=== PATIENT | female | born 1945 | race African-American/Black ===

== ENCOUNTER 2019-02-09 10:33 | Inpatient (IN) | payer OTHER ==
[~2019-02-09] VITALS: Ht 152.4 cm; Wt 92.5 kg
[2019-02-09 10:40] VITALS: BP 98/64
--- NOTE | 2019-02-09 10:43 | NUR ---
RT NOTE PT PLACED ON VENT PER MD ORDER. PT RECEIVED BEING BAGGED BY PARAMEDICS. PT HAS PORTEX [address] CUFFED [address]. CUFF INFLATED. VENTILATOR SETTINGS FOUND IN ENDORSEMENT SHEET FROM FACILITY AC 16 500 40% +5. NO DISTRESS NOTED. ALARMS SET PER PROTOCOL AND AUDIBLE. VENT PLUGGED IN TO RED OUTLET. AMBU BAG AT BED SIDE. ED HEARD UPON AUSCULTATION. MODERATE THICK BROWN BLOOD TINGED SECRETIONS FOUND AFTER SUCTIONING TRACHEA AND ORALLY. Addendum: 02/09/19 at 1047 by SADIQ OLMEDO RT Amended: Links added.
--- NOTE | 2019-02-09 10:46 | NUR ---
PATIENT HAS KAPOOR CATHETER PRIOR TO ADMISSION. WITH DARK YELLOW URINE OUTPUT NOTED
--- NOTE | 2019-02-09 10:46 | NUR ---
PATIENT BBRA [id number] FROM [place] WITH REPORT THAT PATIENT HAS BEEN MORE ALERTERED THAN NORMAL, REPORTS THAT PATIENT IN USUALLY ALERT AND ORIENTED X 1, ABLE TO FOLLOW WITH EYES. PATIENT TRACH/VENT. OBTUNDED. DOES NOT FOLLOW COMMANDS, DOES NOT MAKE EYE CONTACT. CONNECTED TO VENTILATOR.
--- NOTE | 2019-02-09 10:50 | NUR ---
URINE COLLECTED AND SENT TO LAB
--- NOTE | 2019-02-09 10:55 | NUR ---
DR SARAVIA AT BEDSIDE
[2019-02-09 11:03] LABS: BASOPHILS % (AUTO) 0.3 % (0.0-2.0); HEMATOCRIT 34 % (33-45); HEMOGLOBIN 10.9 g/dL (11.5-14.8); LYMPHOCYTES % (AUTO) 8.1 % (20.0-44.0); MEAN CORPUSCULAR HGB CONC 32 g/dl (31.0-36.0); MEAN CORPUSCULAR VOLUME 92 fL (82-100); MONOCYTES # (AUTO) 1.3 /CMM (0.1-1.30); NEUTROPHILS # (AUTO) 10.2 /CMM (1.8-8.9); NEUTROPHILS % (AUTO) 80.6 % (43.0-81.0); PLATELET COUNT (AUTO) 90 /CMM (150-450); WHITE BLOOD COUNT (AUTO) 12.7 K/uL (4.3-11.0)
--- NOTE | 2019-02-09 11:05 | NUR ---
RECTAL TEMP TAKEN, 97.8
[2019-02-09 11:06] LABS: APPEARANCE,URINE Cloudy (CLEAR); BILIRUBIN,URINE SMALL (NEGATIVE); BLOOD, URINE Large Ery/uL (NEGATIVE); COLOR,URINE Dark (YELLOW); KETONES,URINE Trace (NEGATIVE); LEUKOCYTE ESTERASE ,URINE Moderate (NEGATIVE); NITRITE, URINE Negative (NEGATIVE); PROTEIN,URINE >=300 mg/dl (NEGATIVE); UGLUCOSE Negative (NEGATIVE)
[2019-02-09 11:07] LABS: PH,URINE >9.0 (5.0-8.0)
[2019-02-09 11:18] LABS: BACTERIA,URINE 4+ /HPF (None Seen); RBC,URINE TOO NUMEROUS TO COUN /HPF (0-2); SQUAMOUS EPITHELIAL CELL,UR Few /HPF (None Seen); WBC,URINE TOO NUMEROUS TO COUN /HPF (0-3)
[2019-02-09 11:22] LABS: CALCIUM, SERUM 8.7 mg/dL (8.5-10.1); CARBON DIOXIDE 30 mmol/L (21-32); CHLORIDE 96 mmol/L (98-107); CREATININE 0.8 mg/dL (0.6-1.3); GLUCOSE 100 mg/dL (74-106); POTASSIUM 4.6 mmol/L (3.5-5.1); SODIUM SERUM 129 mmol/L (136-145); UREA NITROGEN, BLOOD 25 mg/dL (7-18)
[2019-02-09] MEDS ORDERED: FERR300L GT (11:25)
[2019-02-09] MEDS ORDERED: PROP10TA10 GT (11:25)
[2019-02-09] MEDS ORDERED: POTA20PA34 GT (11:25)
[2019-02-09] MEDS ORDERED: VIT500LI GT (11:25)
[2019-02-09] MEDS ORDERED: MAGN400O6 GT (11:25)
[2019-02-09] MEDS ORDERED: HEPA1DIS3 IM (11:25)
[2019-02-09] MEDS ORDERED: CHLO473M5 MM (11:25)
[2019-02-09] MEDS ORDERED: FLUD0.1T GT (11:25)
[2019-02-09] MEDS ORDERED: INSU100V3 SQ (11:25)
[2019-02-09] MEDS ORDERED: MULT-1168 GT (11:25)
[2019-02-09] MEDS ORDERED: NUT.237L30 GT (11:25)
[2019-02-09] MEDS ORDERED: IPRA3AMP23 IH ×2 (11:25)
[2019-02-09] MEDS ORDERED: AMIN30LI27 GT (11:25)
[2019-02-09] MEDS ORDERED: FOLI1TAB16 GT (11:25)
[2019-02-09] MEDS ORDERED: HYDR-4384 GT (11:25)
[2019-02-09] MEDS ORDERED: ACET-2605 GT (11:25)
[2019-02-09] MEDS ORDERED: NA P133E RC (11:25)
[2019-02-09] MEDS ORDERED: LACT10SO GT (11:25)
[2019-02-09] MEDS ORDERED: ACET650S26 GT ×2 (11:25)
[2019-02-09] MEDS ORDERED: RIFA550T GT (11:25)
[2019-02-09] MEDS ORDERED: METH1TAB GT (11:25)
[2019-02-09] MEDS ORDERED: FAMO20TA8 GT (11:25)
[2019-02-09] MEDS ORDERED: BISA10SU8 RC (11:25)
[2019-02-09] MEDS ORDERED: BRIM5DRO3 EACHEYE (11:25)
[2019-02-09 11:32] LABS: ALANINE AMINOTRANSFERASE 30 U/L (12-78); ALBUMIN 1.8 g/dL (3.4-5.0); ALKALINE PHOSPHATASE 235 U/L (46-116); ASPARTATE AMINOTRANSFERASE 39 U/L (15-37); BILIRUBIN,DIRECT 0.5 mg/dL (0.0-0.2); TOTAL PROTEIN, SERUM 6.8 g/dL (6.4-8.2)
[2019-02-09] MEDS ORDERED: VANCOMYCIN 1 GM in IV D5W 250 ML IV ONE (12:00)
[2019-02-09] MEDS ORDERED: LACTULOSE 10 G/15 ML UDC (PYXIS) GT ONE (12:00)
[2019-02-09] MEDS ORDERED: CEFTRIAXONE 1 G in IV D5W 50 ML IV ONE (12:00)
[2019-02-09 12:01] LABS: EOSINOPHILS % (MANUAL) 3 % (0-4); LYMPHOCYTES % (MANUAL) 11 % (16-48); MONOCYTES % (MANUAL) 11 % (0-11.0); NEUTROPHILS % (MANUAL) 75 (42-76)
[2019-02-09] MEDS ORDERED: LACTULOSE 10 G/15 ML UDC (PYXIS) ONE (12:05)
--- NOTE | 2019-02-09 12:20 | NUR ---
104-PAOLA. PRIMARY NURSE AWARE.
--- NOTE | 2019-02-09 12:45 | NUR ---
SPOKE WITH BHANU BLANCO AND GAVE REPORT
--- NOTE | 2019-02-09 13:27 | NUR ---
paged dr archuleta left voicemail
--- NOTE | 2019-02-09 13:56 | NUR ---
PATIENT INSIDE ROOM. AWAKE, OBTUNDED. TOLERATING VENT SETTING. NO FACIAL GRIMACE NOTED, NO ACUTE DISTRESS
[2019-02-09] MEDS ORDERED: IV NS 0.9% 500 ML BAG IV ONE (14:00)
--- NOTE | 2019-02-09 14:52 | NUR ---
IV RE-ASSESSMENT FOR NG 500ML, STOP TIME 1452, PATIENT TOLERATED WELL
--- NOTE | 2019-02-09 15:10 | NUR ---
PATIENT TRANSFERRED TO ROOM 104 VIA ACLS PROTOCOL, PATIENT CONNECTED TO VENT, AMBUBAG AT BEDSIDE. GT REMAINS PATENT. KAPOOR CATHETER IN PLACE WITH DARK YELLOW URINE ON COLLECTING BAG. RECEIVING RN AT BEDSIDE
[2019-02-09 15:34] VITALS: BP 101/73
[2019-02-09 16:03] VITALS: BP 117/68
[2019-02-09] MEDS ORDERED: MISCELLANEOUS MED 1 EA EA XX ONE ×3 (18:00)
[2019-02-09] MEDS ORDERED: BISACODYL SUPP (10 MG) 10 MG/SUPP.RECT SUPP.RECT RC PRN (18:00)
[2019-02-09] MEDS ORDERED: INSULIN REGULAR, HUMAN 100 UNIT/ML 3 ML VIAL SQ PRN (18:00)
[2019-02-09] MEDS ORDERED: GLUCERNA 1.2 1,000 ML BOTTLE GT SCH (18:00)
[2019-02-09] MEDS ORDERED: NA PHOS,M-B/NA PHOS,DI-BA 1 EA ENEMA RC PRN (18:00)
[2019-02-09] MEDS ORDERED: LACTULOSE 10 G/15 ML UDC (PYXIS) PO PRN ×2 (18:00)
[2019-02-09] MEDS ORDERED: ACETAMINOPHEN 650 MG/20.3 ML UDC GT PRN (18:00)
[2019-02-09] MEDS ORDERED: LACTULOSE 10 G/15 ML UDC (PYXIS) GT PRN (18:20)
[2019-02-09] MEDS ORDERED: FEE PK DOSING 1 MIN EA MC ONE (18:29)
[2019-02-09] MEDS ORDERED: ALBUTEROL FS 2.5 MG/0.5 ML VIAL.NEB NEB PRN ×2 (18:30→21:00)
[2019-02-09] MEDS ORDERED: DEXTROSE 50%-WATER 50 ML DISP.SYRIN IV PRN (18:30)
[2019-02-09] MEDS ORDERED: ACETAMINOPHEN ES 500 MG TABLET GT PRN (18:30)
[2019-02-09] MEDS ORDERED: IPRATROPIUM NEB FS 0.5 MG/2.5 ML AMPUL.NEB NEB PRN (18:30)
[2019-02-09] MEDS: LACTULOSE 10 G/15 ML UDC (PYXIS) GT SCH (19:30)
[2019-02-09] MEDS: IPRATROPIUM NEB FS 0.5 MG/2.5 ML AMPUL.NEB NEB SCH (19:51)
[2019-02-09] MEDS: ALBUTEROL FS 2.5 MG/0.5 ML VIAL.NEB NEB SCH (19:51)
[2019-02-09 20:00] VITALS: BP 129/74
[2019-02-09] MEDS ORDERED: MEROPENEM 1 G in IV NS 0.9% 100 ML IV ONE (20:00)
[2019-02-09] MEDS: PROPRANOLOL HCL 10 MG TABLET GT SCH (21:14)
[2019-02-09] MEDS: CHLORHEXIDINE GLUCONATE 15 ML UDC MM SCH (21:14)
[2019-02-09] MEDS ORDERED: MAGNESIUM HYDROXIDE 30 ML UDC GT PRN (22:00)
[2019-02-09] MEDS: BLOOD SUGAR DIAGNOSTIC 1 EACH STRIP IN SCH (23:02)
[2019-02-09] MEDS: GLUCERNA 1.2 1,000 ML BOTTLE NG PRN (23:04)
[2019-02-09] MEDS: INSULIN REGULAR, HUMAN 100 UNIT/ML 3 ML VIAL SQ PRN (23:04)
--- NOTE | 2019-02-09 23:54 | NUR ---
eben rn notes received pts in bed obtunded , on monitor - st 100 no sob no distress noted ,pts on vent ac setting well tolerated , pts sating 98%,hob elevated for aspiration precaution . abdominal ultrasound done awaiting for result , all needs attended too . family at bedside updated with pts current condition . pts on gt tube inplaced no residual noted . all due meds given as ordered , pts with f/c intact and patent draining with yellowish urine output .will continue to monitor pts
[2019-02-10] VITALS: BP 104/63
[2019-02-10] MEDS ORDERED: LACTULOSE 10 G/15 ML UDC (PYXIS) PO PRN
--- NOTE | 2019-02-10 00:03 | NUR ---
PAOLA RN NOTES blood sugar for 12mn is 71 mg/dl -NO COVERAGE GIVEN PER SLIDING SCALE , GT FEEDING GLUCERNA 1.2 AT 30CC/HR STARTED INFUSING WELL.PTS WAS TURNED AND REPOSITION .V/S STABLE AFEBRILE , WITH IV HEPLOCK ON LEFT AND RIGHT HAND INTACT AND PATENT .WILL CHECK BLOOD SUGAR AGAIN IN 6AM.
[2019-02-10] MEDS: IPRATROPIUM NEB FS 0.5 MG/2.5 ML AMPUL.NEB NEB SCH ×4 (02:07→19:55)
[2019-02-10] MEDS: ALBUTEROL FS 2.5 MG/0.5 ML VIAL.NEB NEB SCH ×4 (02:07→19:55)
[2019-02-10 04:00] VITALS: BP 105/57
[2019-02-10] MEDS: VANCOMYCIN 1.25 GM in IV D5W 500 ML IV SCH (05:26)
[2019-02-10] MEDS: PROPRANOLOL HCL 10 MG TABLET GT SCH ×3 (05:46→20:59)
[2019-02-10] MEDS: BLOOD SUGAR DIAGNOSTIC 1 EACH STRIP IN SCH ×3 (05:51→17:19)
[2019-02-10] MEDS: INSULIN REGULAR, HUMAN 100 UNIT/ML 3 ML VIAL SQ PRN ×3 (05:52→17:20)
--- NOTE | 2019-02-10 06:00 | NUR ---
PAOLA RN NOTES BLOOD SUGAR FOR 6AM IS 122 MG/DL NO COVERAGE GIVEN PER SLIDING SCALE , PTS CONTINUE ON GT FEEDING , V/S STABLE AFEBRILE PTS REMAINS ON VENT DEPENDENT NO SOB NO DISTRESS NOTED , WILL ENDORSE TO RN DAY SHIFT FOR CONTINUITY OF CARE.
[2019-02-10] MEDS: MEROPENEM 1 G in IV NS 0.9% 100 ML IV SCH ×2 (06:26→17:16)
--- NOTE | 2019-02-10 07:10 | NUR ---
RN INITIAL NOTES: Rec'd pt on bed, not in any distress, obtunded. On MV via trach, sating at 100%. On telemonitor, ST/SR. Has IV line access on R hand G20 & L hand G22, both SL, flushing well w/ no s/sx of infection/infiltration noted. Has FC draining to BSB. Has GT on cont GTF Glucerna x 30 cc/hr infusing well, no residual noted upon checking. Safety precaution in place w/ bed in lowest & locked pos. Call light placed w/in reach. Will cont to monitor & attend pt needs.
[2019-02-10 08:00] VITALS: BP 95/50
--- NOTE | 2019-02-10 08:50 | NUR ---
Pt seen & examined by Dr. Neal. Per , may insert Midline if pt is hardstick (unable to draw blood early this AM), may insert rectal tube d/t high ammonia level (on scheduled lactulose).
[2019-02-10] MEDS: LACTULOSE 10 G/15 ML UDC (PYXIS) GT SCH ×3 (08:58→16:56)
[2019-02-10] MEDS: CHLORHEXIDINE GLUCONATE 15 ML UDC MM SCH ×2 (08:58→20:57)
[2019-02-10] MEDS: MULTIPLE VIT (LYCOPENE/FA/MV,CA,IRON,MIN/LUT)1 TAB GT SCH (08:59)
[2019-02-10] MEDS: FOLIC ACID 1 MG TABLET GT SCH (08:59)
[2019-02-10] MEDS: FERROUS SULFATE UDC 300 MG/5 ML UDC GT SCH ×2 (08:59→16:56)
[2019-02-10] MEDS: ASCORBIC ACID 500 MG TABLET PO SCH (08:59)
[2019-02-10] MEDS: RIFAXIMIN 550 MG TABLET GT SCH ×2 (08:59→16:56)
[2019-02-10] MEDS: ACETAMINOPHEN 650 MG/20.3 ML UDC GT SCH (08:59)
[2019-02-10] MEDS: FAMOTIDINE (20 MG) 20 MG TABLET GT SCH ×2 (08:59→16:56)
[2019-02-10] MEDS: POTASSIUM CHLORIDE 20 MEQ POWDER PACKET GT SCH (08:59)
[2019-02-10] MEDS ORDERED: RIFAXIMIN 550 MG TABLET GT SCH ×2 (09:00)
[2019-02-10] MEDS ORDERED: FLUDROCORTISONE 0.1 MG TABLET GT SCH (09:00)
[2019-02-10] MEDS: BRIMONIDINE TARTRATE OPHT SOLN 5 ML BOTTLE EACHEYE SCH (09:00)
[2019-02-10] MEDS: PROSOURCE / PROSTAT (PYXIS) 30 ML UDC GT SCH (09:00)
[2019-02-10 09:43] LABS: BASOPHILS % (AUTO) 0.3 % (0.0-2.0); EOSINOPHILS % (AUTO) 1.3 % (0.0-6.0); HEMATOCRIT 31 % (33-45); LYMPHOCYTES # (AUTO) 1.1 /CMM (0.8-4.8); LYMPHOCYTES % (AUTO) 8.7 % (20.0-44.0); MEAN CORPUSCULAR HGB CONC 32 g/dl (31.0-36.0); MEAN CORPUSCULAR VOLUME 91 fL (82-100); MONOCYTES # (AUTO) 1.9 /CMM (0.1-1.30); MONOCYTES % (AUTO) 14.9 % (2.0-12.0); NEUTROPHILS # (AUTO) 9.7 /CMM (1.8-8.9); NEUTROPHILS % (AUTO) 74.8 % (43.0-81.0); PLATELET COUNT (AUTO) 87 /CMM (150-450); RED BLOOD CELL COUNT(AUTO) 3.43 MIL/uL (4.0-5.2)
[2019-02-10 09:52] LABS: SERUM AMMONIA 162 umol/L (11-32)
[2019-02-10 09:54] LABS: ALANINE AMINOTRANSFERASE 28 U/L (12-78); ALBUMIN 1.7 g/dL (3.4-5.0); ALKALINE PHOSPHATASE 194 U/L (46-116); ASPARTATE AMINOTRANSFERASE 42 U/L (15-37); BILIRUBIN,TOTAL 1.4 mg/dL (0.2-1.0); CALCIUM, SERUM 8.5 mg/dL (8.5-10.1); CARBON DIOXIDE 28 mmol/L (21-32); CHLORIDE 96 mmol/L (98-107); CREATININE 0.8 mg/dL (0.6-1.3); GLUCOSE 113 mg/dL (74-106); POTASSIUM 4.9 mmol/L (3.5-5.1); SODIUM SERUM 129 mmol/L (136-145); TOTAL PROTEIN, SERUM 6.6 g/dL (6.4-8.2); UREA NITROGEN, BLOOD 26 mg/dL (7-18)
--- NOTE | 2019-02-10 10:00 | NUR ---
Relayed AM labs to Dr. Ángel deleon/ TRUONG.
[2019-02-10 10:26] LABS: BAND % (MANUAL) 2 % (0.0-5.0); EOSINOPHILS % (MANUAL) 1 % (0-4); LYMPHOCYTES % (MANUAL) 10 % (16-48); MONOCYTES % (MANUAL) 13 % (0-11.0); NEUTROPHILS % (MANUAL) 74 (42-76)
[2019-02-10 12:00] VITALS: BP 103/55
[2019-02-10 16:00] VITALS: BP 97/54
--- NOTE | 2019-02-10 18:50 | NUR ---
RN CLOSING NOTES: No significant changes noted w/in shift. Pt tolerated MV settings via trach, sating at 100%. SR on telemonitor. IV line access - KAYLEY midline, R hand G20 & L hand G22, kept patent & intact w/ no s/sx of infection/infiltration noted. FC draining to BSB, Dr. Neal made aware that pt only has 250 cc UOP w/ orders to give Lasix 40mg IV x 1. GT kept patent & intact tolerated cont GTF Glucerna x 30 cc/hr infusing well, no residual noted w/in shift. Safety precaution kept in place at all times w/ bed in lowest & locked pos. Call light placed w/in reach. Will endorse to PM RN for KAT. C.diff noted negative, isolation DC'd.
[2019-02-10] MEDS ORDERED: FUROSEMIDE 40 MG/4 ML VIAL IV ONE (19:00)
[2019-02-10 20:00] VITALS: BP 96/54
[2019-02-11] VITALS: BP 101/51
[2019-02-11] MEDS: VANCOMYCIN 1.25 GM in IV D5W 500 ML IV SCH (00:44)
[2019-02-11] MEDS: BLOOD SUGAR DIAGNOSTIC 1 EACH STRIP IN SCH ×5 (00:45→23:07)
[2019-02-11] MEDS: ALBUTEROL FS 2.5 MG/0.5 ML VIAL.NEB NEB SCH ×4 (01:29→19:22)
[2019-02-11] MEDS: IPRATROPIUM NEB FS 0.5 MG/2.5 ML AMPUL.NEB NEB SCH ×4 (01:29→19:22)
--- NOTE | 2019-02-11 01:30 | NUR ---
ENDORSED CARE TO KT BLANCO FOR CONTINUITY OF CARE. PT REMAINS IN NO ACUTE DISTRESS IN BED. PT TOLERATING VENT SETTING WELL.
[2019-02-11 04:00] VITALS: BP 92/53
--- NOTE | 2019-02-11 04:42 | NUR ---
RT NOTE PT REC'D TRACHED ON [facility] VENT ON AC MODE. NO RESP DISTRESS OR SOB NOTED. SX'D FOR THICK MOD AMT OF PALE YELLOW SECRETIONS. ALARMS ARE SET AND AUDIBLE. AMBU BAG BEDSIDE. VENT PLUGGED INTO RED OUTLET. WILL CONTINUE TO MONITOR. Addendum: 02/11/19 at 0443 by ILANA GREENBERG RT Amended: Links added.
[2019-02-11] MEDS: PROPRANOLOL HCL 10 MG TABLET GT SCH ×2 (05:04→12:17)
[2019-02-11] MEDS: MEROPENEM 1 G in IV NS 0.9% 100 ML IV SCH ×2 (05:05→17:05)
[2019-02-11] MEDS: INSULIN REGULAR, HUMAN 100 UNIT/ML 3 ML VIAL SQ PRN (05:20)
[2019-02-11 06:19] LABS: BASOPHILS # (AUTO) 0.1 /CMM (0.0-0.2); BASOPHILS % (AUTO) 0.7 % (0.0-2.0); EOSINOPHILS % (AUTO) 2.8 % (0.0-6.0); HEMATOCRIT 30 % (33-45); HEMOGLOBIN 9.7 g/dL (11.5-14.8); LYMPHOCYTES # (AUTO) 1.2 /CMM (0.8-4.8); LYMPHOCYTES % (AUTO) 14.2 % (20.0-44.0); MEAN CORPUSCULAR HGB CONC 33 g/dl (31.0-36.0); MEAN CORPUSCULAR VOLUME 91 fL (82-100); MONOCYTES # (AUTO) 1.5 /CMM (0.1-1.30); MONOCYTES % (AUTO) 17.2 % (2.0-12.0); NEUTROPHILS # (AUTO) 5.7 /CMM (1.8-8.9); NEUTROPHILS % (AUTO) 65.1 % (43.0-81.0); PLATELET COUNT (AUTO) 88 /CMM (150-450); RED BLOOD CELL COUNT(AUTO) 3.26 MIL/uL (4.0-5.2); WHITE BLOOD COUNT (AUTO) 8.7 K/uL (4.3-11.0)
[2019-02-11 06:33] LABS: SERUM AMMONIA 82 umol/L (11-32)
[2019-02-11 06:34] LABS: ALANINE AMINOTRANSFERASE 28 U/L (12-78); ALBUMIN 1.6 g/dL (3.4-5.0); ALKALINE PHOSPHATASE 196 U/L (46-116); ASPARTATE AMINOTRANSFERASE 33 U/L (15-37); BILIRUBIN,TOTAL 1.3 mg/dL (0.2-1.0); CALCIUM, SERUM 8.3 mg/dL (8.5-10.1); CARBON DIOXIDE 29 mmol/L (21-32); CHLORIDE 96 mmol/L (98-107); GLUCOSE 87 mg/dL (74-106); POTASSIUM 4.6 mmol/L (3.5-5.1); SODIUM SERUM 131 mmol/L (136-145); TOTAL PROTEIN, SERUM 6.4 g/dL (6.4-8.2); UREA NITROGEN, BLOOD 32 mg/dL (7-18)
[2019-02-11 08:00] VITALS: BP_SYST 104; BP_SYST 92; BP_DIAS 52; BP_DIAS 63
--- NOTE | 2019-02-11 08:00 | NUR ---
TD/RN AM SHIFT INITIAL NOTES RECEIVED PT ASLEEP IN BED, PT OBTUNDED, OPEN EYES, NO TRACKING, NO GRIMACING OR ACUTE DISTRESS OR GRIMACING NOTED. ON VENTILATOR WITH RATES SET PRESCRIBED, SATURATING @ 96%, LUNG SOUNDS CLEAR, RESPIRATIONS EVEN & UNLABORED. SUCTIONED FOR AIRWAY CLEARANCE. ON TELE WITH SINUS RHYTHM. HR 98. MIDLINE ON TKO, PATENT WITH NO S/S OF INFECTION. GT FEEDING @ 30CC/HR, NO GASTRIC RESIDUAL NOTED, FLUSHED PATENT. KAPOOR CATHETER INTACT NOTED WITH MARÍA COLORED URINE OUTPUT. RECTAL TUBE IN PLACED WITH LIGHT BROWN LIQUID FECAL OUTPUT NOTED, NO NOTED EDEMA ON LEGS. PT IS COMFORTABLE AT THIS TIME, SCHEDULED AM MEDS TO BE GIVEN. CL WITHIN REACHED AND SAFETY MAINTAINED. ON GOING MONITORING.
--- NOTE | 2019-02-11 08:28 | NUR ---
RT NOTE RECEIVED PT MECHANICALLY VENTILATED VIA PORTEX 7 CUFFED TRACHEOSTOMY TUBE. CUFF INFLATED. TRACH TUBE MIDLINE AND SECURE. VENTILATOR SETTINGS PRESCRIBED. ALARMS SET PER PROTOCOL AND AUDIBLE. VENT PLUGGED IN TO RED OUTLET. AMBU BAG AT BED SIDE. NO DISTRESS NOTED AT MOMENT. Addendum: 02/11/19 at 0828 by SADIQ OLMEDO RT Amended: Links added.
--- NOTE | 2019-02-11 08:35 | NUR ---
TD/RN ROUNDS - DR. NAVARRETE UPDATED PT'S CONDITION. PT SEEN & EXAMINED BY DR. NAVARRETE, NEW ORDERS RECEIVED, NOTED AND CARRIED.
[2019-02-11] MEDS: ACETAMINOPHEN 650 MG/20.3 ML UDC GT SCH (08:46)
[2019-02-11] MEDS: FOLIC ACID 1 MG TABLET GT SCH (08:46)
[2019-02-11] MEDS: PROSOURCE / PROSTAT (PYXIS) 30 ML UDC GT SCH (08:46)
[2019-02-11] MEDS: FERROUS SULFATE UDC 300 MG/5 ML UDC GT SCH ×2 (08:46→16:50)
[2019-02-11] MEDS: POTASSIUM CHLORIDE 20 MEQ POWDER PACKET GT SCH (08:46)
[2019-02-11] MEDS: ASCORBIC ACID 500 MG TABLET PO SCH (08:46)
[2019-02-11] MEDS: MULTIPLE VIT (LYCOPENE/FA/MV,CA,IRON,MIN/LUT)1 TAB GT SCH (08:46)
[2019-02-11] MEDS: FAMOTIDINE (20 MG) 20 MG TABLET GT SCH ×2 (08:46→16:51)
[2019-02-11] MEDS: RIFAXIMIN 550 MG TABLET GT SCH ×2 (08:46→16:51)
[2019-02-11] MEDS: CHLORHEXIDINE GLUCONATE 15 ML UDC MM SCH ×2 (08:46→21:36)
[2019-02-11] MEDS: LACTULOSE 10 G/15 ML UDC (PYXIS) GT SCH ×3 (08:46→16:50)
[2019-02-11] MEDS: BRIMONIDINE TARTRATE OPHT SOLN 5 ML BOTTLE EACHEYE SCH (08:47)
[2019-02-11] MEDS: FUROSEMIDE 20 MG/2 ML VIAL IV SCH ×2 (08:49→16:51)
[2019-02-11] MEDS: ERYTHROMYCIN BASE OPHTH 3.5 GM TUBE EACHEYE SCH ×2 (08:57→21:35)
[2019-02-11] MEDS ORDERED: Z GUARD REMEDY 4 OZ OINT TP PRN (09:00)
--- NOTE | 2019-02-11 10:14 | NUR ---
TD/RN PHYSICAL THERAPY EVALUATION THERAPIST SAW PT, PT NOT READY TO FULLY ENGAGED FOR EVALUATION, WILL HOLD UNTIL PT IS MORE ALERT AND COOPERATIVE. Addendum: 02/11/19 at 1017 by ALBERTO SEAMAN RN ERROR: DOCUMENTED IN WRONG PATIENT.
[2019-02-11 12:00] VITALS: BP 85/54
--- NOTE | 2019-02-11 12:06 | NUR ---
TD/RN LOW BP PT NOTED WITH LOW BP 85/54 WITH AUTOMATIC CUFF, BP TAKEN MANUALLY 81/50. ASYMPTOMATIC. DR. NAVARRETE NOTIFIED WITH T.O. ORDER RECEIVED TO START PT ON MIDODRINE 10MG TID, ORDER NOTED AND CARRIED OUT.
[2019-02-11] MEDS: MIDODRINE HCL (5MG) 5 MG TABLET PO SCH ×2 (12:17→16:51)
[2019-02-11] MEDS: NYSTATIN TOP POWDER 15 GM BOTTLE TP SCH (13:00)
[2019-02-11] MEDS: DAKINS QUARTER STRENGTH (0.125%) 480 ML BOTTLE TOP SCH (14:16)
[2019-02-11] MEDS: GLUCERNA 1.2 1,000 ML BOTTLE NG PRN (14:57)
[2019-02-11 16:00] VITALS: BP 96/56
[2019-02-11] MEDS: LACTOBACILLUS RHAMNOSUS GG 1 EACH CAP.SPRINK GT SCH (16:51)
--- NOTE | 2019-02-11 17:30 | NUR ---
TD/RN RIGHT EAR DRAINAGE NOTIFIED DR. NAVARRETE OF PINK/BLOOD TINGED DRAINAGE COMING OUT OF HER RIGHT EAR, PER MD WILL CHECK IN AM, ALSO RECEIVED ORDER FOR CT OF HEAD WITHOUT CONTRAST, NOTED AND CARRIED OUT.
--- NOTE | 2019-02-11 19:00 | NUR ---
TD RN NOTES RECEIVED PT ON BED. ON [facility] VENT SETTING DESATURATING, NO RESPIRATORY DISTRESS NOTED. SINUS RHYTHM ON MONITOR 89. PT OBTUNDED. IV ACCESS PATENT AND INTACT. HEAD OF BED ELEVATED. SIDE RAILS UP. CALL LIGHT WITHIN REACH. BED ALARM ON. WILL CONTINUE TO MONITOR PT CLOSELY.
--- NOTE | 2019-02-11 19:11 | NUR ---
TD/RN AM SHIFT END NOTES NO ACUTE CHANGE OF NOTED DURING THE SHIFT, ALL NEEDS MET. PT ENDORSED TO PM NURSE TO CONTINUE CARE. CL WITHIN REACHED AND SAFETY MAINTAINED. Addendum: 02/11/19 at 1917 by ALBERTO SEAMAN RN ERROR IN CHARTING: PT NOTED WITH NO ACUTE CHANGE OF CONDITION NOTED DURING THE SHIFT.
--- NOTE | 2019-02-11 19:26 | NUR ---
TD RN NOTES CALLED DR NAVARRETE FOR ORDERS, PT DESATURATING ON MECH VENT SETTING.RT AT BEDSIDE. BLOOD PRESSURE 107/86MMHG. HEART RATE OF 98.ORDERED ABG AND CXR STAT. CALLED RADIOLOGY FOR STAT CXR ORDER.
[2019-02-11 19:47] LABS: ABG BASE EXCESS 3.2 mmol/L; ABG OXYGEN SATURATION 99.7 % (92.0-98.5); ABG PCO2 41.2 mmHg (35.0-45.0); ABG PH 7.443 (7.350-7.450); ABG PO2 369.3 mmHg (75.0-100.0); AaDO2 302.5 mmHg; COHb 1.4 % (0.5-1.5); MetHb 0.6 % (0.0-1.5); O2Hb 97.7 % (94.0-97.0); PEEP,BG 5 cm H2O; SITE, ABG Right Radial; VENT MODE, BG AC 16 500100% +5; VT, ABG 500 mL
[2019-02-11 20:00] VITALS: BP 107/63
--- NOTE | 2019-02-11 20:52 | NUR ---
TD RN NOTES INFORMED DR NAVARRETE, REGARDING ABG AND CXR RESULTS. AWAITING ORDERS.
[2019-02-11] MEDS ORDERED: FUROSEMIDE 40 MG/4 ML VIAL IV ONE (21:00)
--- NOTE | 2019-02-11 21:36 | NUR ---
TD RN NOTES INFORMED DR NAVARRETE, ABOUT PT DESATURATING, LOW BLOOD PRESSURE. PER DR NAVARRETE, HOLD LASIX 40MG IV. REPEAT ABG ORDERED.
--- NOTE | 2019-02-11 22:35 | NUR ---
TD RN NOTES RT AT BEDSIDE
[2019-02-11 22:52] LABS: ABG BASE EXCESS 2.2 mmol/L; ABG OXYGEN SATURATION 97.1 % (92.0-98.5); ABG PCO2 42.3 mmHg (35.0-45.0); ABG PH 7.422 (7.350-7.450); ABG PO2 95.1 mmHg (75.0-100.0); AaDO2 213.8 mmHg; COHb 1.5 % (0.5-1.5); MetHb 0.5 % (0.0-1.5); O2Hb 95.2 % (94.0-97.0); PEEP,BG 5 cm H2O; SITE, ABG Left Radial; VENT MODE, BG AC 16 500 50% +5; VT, ABG 500 mL
--- NOTE | 2019-02-11 23:08 | NUR ---
TD RN NOTES BS 64, GIVEN ORANGE JUICE. WILL RECHECK IN 30MINS. GTUBE FEEDING INCREASE TO 50CC/HR, NO RESIDUAL NOTED.
[2019-02-12] VITALS: BP 105/60
[2019-02-12] MEDS: NYSTATIN TOP POWDER 15 GM BOTTLE TP SCH ×2 (00:18→12:21)
[2019-02-12] MEDS ORDERED: VANCOMYCIN 500 MG VIAL ONE (00:23)
[2019-02-12] MEDS ORDERED: VANCOMYCIN 1 GM VIAL ONE (00:26)
[2019-02-12] MEDS ORDERED: VANCOMYCIN 1 GM in IV D5W 250ml IV ONE (00:30)
[2019-02-12] MEDS ORDERED: VANCOMYCIN 1.25 GM in IV D5W 500 ML IV ONE (00:30)
--- NOTE | 2019-02-12 00:39 | NUR ---
TD RN NOTES BS 81MG/DL UPON RECHECKING.
[2019-02-12] MEDS: IPRATROPIUM NEB FS 0.5 MG/2.5 ML AMPUL.NEB NEB SCH ×4 (02:11→19:58)
[2019-02-12] MEDS: ALBUTEROL FS 2.5 MG/0.5 ML VIAL.NEB NEB SCH ×4 (02:11→19:58)
[2019-02-12 04:00] VITALS: BP 103/58
[2019-02-12] MEDS: MEROPENEM 1 G in IV NS 0.9% 100 ML IV SCH ×2 (05:01→17:28)
[2019-02-12] MEDS: BLOOD SUGAR DIAGNOSTIC 1 EACH STRIP IN SCH ×4 (05:11→23:28)
--- NOTE | 2019-02-12 05:16 | NUR ---
TD RN NOTES F/U WITH RADIOLOGY ABOUT CT SCAN W/P CONTRAST, PER RADIOLOGY WILL DO IT IN AM
[2019-02-12 06:34] LABS: ALANINE AMINOTRANSFERASE 28 U/L (12-78); ALBUMIN 1.6 g/dL (3.4-5.0); ALKALINE PHOSPHATASE 239 U/L (46-116); ASPARTATE AMINOTRANSFERASE 31 U/L (15-37); BILIRUBIN,TOTAL 1.1 mg/dL (0.2-1.0); CALCIUM, SERUM 8.5 mg/dL (8.5-10.1); CARBON DIOXIDE 28 mmol/L (21-32); CHLORIDE 97 mmol/L (98-107); CREATININE 1.1 mg/dL (0.6-1.3); GLUCOSE 96 mg/dL (74-106); MAGNESIUM 2.5 mg/dL (1.8-2.4); POTASSIUM 4.1 mmol/L (3.5-5.1); SODIUM SERUM 131 mmol/L (136-145); TOTAL PROTEIN, SERUM 6.8 g/dL (6.4-8.2); UREA NITROGEN, BLOOD 35 mg/dL (7-18)
[2019-02-12 06:35] LABS: BASOPHILS % (AUTO) 0.4 % (0.0-2.0); EOSINOPHILS % (AUTO) 4.1 % (0.0-6.0); HEMATOCRIT 32 % (33-45); HEMOGLOBIN 10.4 g/dL (11.5-14.8); LYMPHOCYTES # (AUTO) 1.1 /CMM (0.8-4.8); LYMPHOCYTES % (AUTO) 15.2 % (20.0-44.0); MEAN CORPUSCULAR HGB CONC 33 g/dl (31.0-36.0); MEAN CORPUSCULAR VOLUME 92 fL (82-100); MONOCYTES # (AUTO) 1.2 /CMM (0.1-1.30); MONOCYTES % (AUTO) 16.4 % (2.0-12.0); NEUTROPHILS # (AUTO) 4.8 /CMM (1.8-8.9); NEUTROPHILS % (AUTO) 63.9 % (43.0-81.0); PLATELET COUNT (AUTO) 104 /CMM (150-450); RED BLOOD CELL COUNT(AUTO) 3.48 MIL/uL (4.0-5.2); WHITE BLOOD COUNT (AUTO) 7.5 K/uL (4.3-11.0)
[2019-02-12 06:48] LABS: SERUM AMMONIA 41 umol/L (11-32)
--- NOTE | 2019-02-12 07:16 | NUR ---
WOUND CARE CONSULT WOUND CARE RECEIVED CONSULT FOR SACRAL WOUND. WOUND CARE WILL DEFER CONSULT AND ALL TREATMENT PLANS TO PLASTIC SURGICAL TEAM WHO ARE CURRENTLY FOLLOWING. PATIENT WITH CURRENT RITESH OF 10. ALL PRESSURE ULCER PREVENTION MEASURES ARE NOTED TO BE IN PLACE AT THIS TIME. WILL SEE PRN.
--- NOTE | 2019-02-12 07:20 | NUR ---
TD RN NOTES NO ACUTE CHANGES NOTED DURING THE SHIFT. NO RESPIRATORY DISTRESS NOTED. WILL ENDORSE TO THE AM NURSE FOR CONTINUITY OF CARE.
[2019-02-12 08:00] VITALS: BP 104/81
[2019-02-12 08:00] LABS: BAND % (MANUAL) 12 % (0.0-5.0); EOSINOPHILS % (MANUAL) 3 % (0-4); LYMPHOCYTES % (MANUAL) 17 % (16-48); MONOCYTES % (MANUAL) 12 % (0-11.0); NEUTROPHILS % (MANUAL) 56 (42-76)
--- NOTE | 2019-02-12 08:00 | NUR ---
TD/RN AM SHIFT INITIAL NOTES RECEIVED PT ASLEEP IN BED, PT OBTUNDED, OPEN EYES, NO TRACKING, NO GRIMACING, ACUTE DISTRESS OR FEVER NOTED. ON VENTILATOR WITH RATES SET PRESCRIBED, SATURATING @ 96%, LUNG SOUNDS CLEAR, RESPIRATIONS EVEN & UNLABORED. SUCTIONED FOR AIRWAY CLEARANCE. ON TELE WITH SINUS RHYTHM. HR 92. MIDLINE ON TKO, PATENT WITH NO S/S OF INFECTION. GT FEEDING @ 30CC/HR, NO GASTRIC RESIDUAL NOTED, FLUSHED PATENT. KAPOOR CATHETER INTACT NOTED WITH MARÍA COLORED URINE OUTPUT. RECTAL TUBE IN PLACED WITH LIGHT BROWN LIQUID FECAL OUTPUT NOTED, NOTED WITH GENERALIZED EDEMA. PT IS COMFORTABLE AT THIS TIME, SCHEDULED AM MEDS TO BE GIVEN. CL WITHIN REACHED AND SAFETY MAINTAINED. ON GOING MONITORING.
[2019-02-12] MEDS: ERYTHROMYCIN BASE OPHTH 3.5 GM TUBE EACHEYE SCH ×2 (08:57→20:18)
[2019-02-12] MEDS: BRIMONIDINE TARTRATE OPHT SOLN 5 ML BOTTLE EACHEYE SCH (08:57)
[2019-02-12] MEDS: FAMOTIDINE (20 MG) 20 MG TABLET GT SCH ×2 (08:58→16:35)
[2019-02-12] MEDS: FERROUS SULFATE UDC 300 MG/5 ML UDC GT SCH ×2 (08:58→16:34)
[2019-02-12] MEDS: PROSOURCE / PROSTAT (PYXIS) 30 ML UDC GT SCH (08:58)
[2019-02-12] MEDS: ACETAMINOPHEN 650 MG/20.3 ML UDC GT SCH (08:58)
[2019-02-12] MEDS: FOLIC ACID 1 MG TABLET GT SCH (08:58)
[2019-02-12] MEDS: CHLORHEXIDINE GLUCONATE 15 ML UDC MM SCH ×2 (08:58→20:20)
[2019-02-12] MEDS: RIFAXIMIN 550 MG TABLET GT SCH ×2 (08:58→16:35)
[2019-02-12] MEDS: POTASSIUM CHLORIDE 20 MEQ POWDER PACKET GT SCH (08:59)
[2019-02-12] MEDS: LACTOBACILLUS RHAMNOSUS GG 1 EACH CAP.SPRINK GT SCH ×2 (08:59→16:34)
[2019-02-12] MEDS: ASCORBIC ACID 500 MG TABLET PO SCH (08:59)
[2019-02-12] MEDS: FUROSEMIDE 20 MG/2 ML VIAL IV SCH ×2 (08:59→16:35)
[2019-02-12] MEDS: MIDODRINE HCL (5MG) 5 MG TABLET PO SCH ×3 (08:59→16:34)
[2019-02-12] MEDS: MULTIPLE VIT (LYCOPENE/FA/MV,CA,IRON,MIN/LUT)1 TAB GT SCH (08:59)
[2019-02-12] MEDS: LACTULOSE 10 G/15 ML UDC (PYXIS) GT SCH ×2 (09:00→16:33)
[2019-02-12] MEDS: DAKINS QUARTER STRENGTH (0.125%) 480 ML BOTTLE TOP SCH (09:00)
[2019-02-12] MEDS ORDERED: GLUCERNA 1.2 1,000 ML BOTTLE NG PRN (10:19)
[2019-02-12 12:00] VITALS: BP 102/65
--- NOTE | 2019-02-12 12:00 | NUR ---
TD/RN NOON ROUNDS PT SUCTIONED AND REPOSITIONED, NO ACUTE CHANGE OF CONDITION NOTED AT THIS TIME. CONTINUED MONITORING.
--- NOTE | 2019-02-12 15:53 | NUR ---
TD/RN S/P CT OF HEAD PT RETURNED TO TD UNIT S/P CT OF HEAD IN STABLE CONDITION. MONITORING CONTINUED.
[2019-02-12 16:00] VITALS: BP 117/59
--- NOTE | 2019-02-12 17:45 | NUR ---
TD/RN AFTERNOON ROUNDS PM CARE PROVIDED. NO CHANGE OF CONDITION. MONITORING CONTINUED.
--- NOTE | 2019-02-12 19:10 | NUR ---
TD/RN AM SHIFT END NOTES NO ACUTE CHANGE OF CONDITION NOTED DURING THE SHIFT, ALL NEEDS MET. PT ENDORSED TO PM NURSE TO CONTINUE CARE. CL WITHIN REACHED AND SAFETY MAINTAINED.
[2019-02-12 20:00] VITALS: BP 101/63
--- NOTE | 2019-02-12 20:00 | NUR ---
RN PAOLA - NOTES - RECEIVED PT ASLEEP IN BED, PT OBTUNDED, OPEN EYES, NO TRACKING, NO GRIMACING, NO ACUTE DISTRESS OR FEVER NOTED. ON VENTILATOR WITH RATES SET PRESCRIBED, SATURATING @ 96%, RESPIRATIONS EVEN & UNLABORED. SUCTIONED FOR AIRWAY CLEARANCE. ON TELE WITH SINUS RHYTHM. HR 101. MIDLINE ON TKO, PATENT WITH NO S/S OF INFECTION. GT FEEDING @ 65 ML/HR, 80 ML GASTRIC RESIDUAL NOTED, FLUSHED PATENT. KAPOOR CATHETER INTACT NOTED WITH MARÍA COLORED URINE OUTPUT. RECTAL TUBE IN PLACED WITH LIGHT BROWN LIQUID FECAL OUTPUT NOTED, NOTED WITH GENERALIZED EDEMA. PT IS COMFORTABLE AT THIS TIME. CALL LIGHT WITHIN REACHED AND SAFETY MAINTAINED. ON GOING MONITORING.
--- NOTE | 2019-02-12 20:18 | NUR ---
RECEIVED PT TRACHED PTX 7 ON VENT. NO RESP DISTRESS, PT TOLERATING VENT SETTINGS. SX'D FOR MOD AMT OF THICK YELLOW SECRETIONS. VENT ALARMS SET AND AUDIBLE. AMBU BAG AT BEDSIDE. VENT PLUGGED INTO RED OUTLET. WILL CONTINUE TO MONITOR. Addendum: 02/12/19 at 2020 by JUANA BRANHAM RT Amended: Links added.
[2019-02-12] MEDS ORDERED: VANCOMYCIN 1.25 GM in IV D5W 500 ML IV SCH (23:00)
[2019-02-13] VITALS: BP 106/40
[2019-02-13] MEDS: NYSTATIN TOP POWDER 15 GM BOTTLE TP SCH ×2 (00:22→12:19)
[2019-02-13] MEDS: ALBUTEROL FS 2.5 MG/0.5 ML VIAL.NEB NEB SCH ×4 (01:09→19:37)
[2019-02-13] MEDS: IPRATROPIUM NEB FS 0.5 MG/2.5 ML AMPUL.NEB NEB SCH ×4 (01:10→19:38)
--- NOTE | 2019-02-13 02:27 | NUR ---
pt had 400 ml tube feeding residuals noted, james alicea roll form operator notified, will give 10 mg reglan q8h and hold tf for 1 hour
[2019-02-13] MEDS: METOCLOPRAMIDE HCL 10 MG/2 ML VIAL IV SCH ×4 (02:33→20:45)
[2019-02-13 04:00] VITALS: BP 111/48
[2019-02-13] MEDS: MEROPENEM 1 G in IV NS 0.9% 100 ML IV SCH ×2 (05:51→17:13)
[2019-02-13] MEDS: BLOOD SUGAR DIAGNOSTIC 1 EACH STRIP IN SCH ×4 (05:51→23:04)
[2019-02-13 06:28] LABS: BASOPHILS % (AUTO) 0.3 % (0.0-2.0); EOSINOPHILS % (AUTO) 3.8 % (0.0-6.0); HEMATOCRIT 32 % (33-45); HEMOGLOBIN 10.3 g/dL (11.5-14.8); LYMPHOCYTES # (AUTO) 0.9 /CMM (0.8-4.8); LYMPHOCYTES % (AUTO) 14.2 % (20.0-44.0); MEAN CORPUSCULAR HGB CONC 33 g/dl (31.0-36.0); MEAN CORPUSCULAR VOLUME 92 fL (82-100); MONOCYTES # (AUTO) 1.2 /CMM (0.1-1.30); MONOCYTES % (AUTO) 18.2 % (2.0-12.0); NEUTROPHILS # (AUTO) 4.2 /CMM (1.8-8.9); NEUTROPHILS % (AUTO) 63.5 % (43.0-81.0); PLATELET COUNT (AUTO) 105 /CMM (150-450); RED BLOOD CELL COUNT(AUTO) 3.43 MIL/uL (4.0-5.2); WHITE BLOOD COUNT (AUTO) 6.7 K/uL (4.3-11.0)
[2019-02-13 06:41] LABS: CALCIUM, SERUM 8.5 mg/dL (8.5-10.1); CARBON DIOXIDE 28 mmol/L (21-32); CHLORIDE 97 mmol/L (98-107); CREATININE 0.9 mg/dL (0.6-1.3); GLUCOSE 84 mg/dL (74-106); POTASSIUM 4.3 mmol/L (3.5-5.1); SODIUM SERUM 131 mmol/L (136-145); UREA NITROGEN, BLOOD 37 mg/dL (7-18)
--- NOTE | 2019-02-13 07:30 | NUR ---
CASHIER MANAGER INITIAL NOTES RECEIVED PATIENT IN BED SLEEPING COMFORTABLY. NO SIGNS OF PAIN OR ACUTE DISTRESS AT THIS TIME. PATIENT ABLE TO RESPOND TO VERBAL AND TACTILE STIMULI. PT ON VENTILATOR WITH PRESCRIBED VENT SETTINGS. LUNG SOUNDS CLEAR WITH RESPIRATIONS EVEN & UNLABORED. SUCTIONED TO MAINTAIN PATENT AIRWAY. PT ON TELE MONITOR AND NOTED WITH SINUS RHYTHM. PT HAS A KAYLEY MIDLINE 18G AND ALSO A R HAND 20G. FLUSHING WELL AND PATENT. NO S/S OF INFECTION. GT FEEDING @ 65CC/HR, NO GASTRIC RESIDUAL NOTED, FLUSHED PATENT. KAPOOR CATHETER INTACT AND PATENT AND DRAINING WELL. RECTAL TUBE IN PLACED WITH LIGHT BROWN LIQUID FECAL OUTPUT NOTED, NOTED WITH GENERALIZED EDEMA. PT IS COMFORTABLE AT THIS TIME. ALL NEEDS ANTICIPATED. KEPT CLEAN AND DRY. CALL LIGHT WITHIN REACHED. BED IS LOCKED AND IN LOWEST POSITION. WILL CONTINUE TO MONITOR.
[2019-02-13 08:00] VITALS: BP 104/72
[2019-02-13 08:03] LABS: BAND % (MANUAL) 5 % (0.0-5.0); EOSINOPHILS % (MANUAL) 5 % (0-4); LYMPHOCYTES % (MANUAL) 16 % (16-48); MONOCYTES % (MANUAL) 18 % (0-11.0); NEUTROPHILS % (MANUAL) 56 (42-76)
--- NOTE | 2019-02-13 08:14 | NUR ---
DR NAVARRETE AT BEDSIDE. NOTIFIED OF PATIENT AMMONIA LEVEL THIS AM. AND PATIENT VS AND CONDITIONS. NO NEW ORDERS.
[2019-02-13] MEDS: MULTIPLE VIT (LYCOPENE/FA/MV,CA,IRON,MIN/LUT)1 TAB GT SCH (08:22)
[2019-02-13] MEDS: LACTULOSE 10 G/15 ML UDC (PYXIS) GT SCH ×2 (08:23→16:37)
[2019-02-13] MEDS: MIDODRINE HCL (5MG) 5 MG TABLET PO SCH ×3 (08:23→16:38)
[2019-02-13] MEDS: ACETAMINOPHEN 650 MG/20.3 ML UDC GT SCH (08:23)
[2019-02-13] MEDS: ASCORBIC ACID 500 MG TABLET PO SCH (08:23)
[2019-02-13] MEDS: FAMOTIDINE (20 MG) 20 MG TABLET GT SCH ×2 (08:24→16:37)
[2019-02-13] MEDS: FUROSEMIDE 20 MG/2 ML VIAL IV SCH ×2 (08:24→16:37)
[2019-02-13] MEDS: PROSOURCE / PROSTAT (PYXIS) 30 ML UDC GT SCH (08:24)
[2019-02-13] MEDS: FOLIC ACID 1 MG TABLET GT SCH (08:24)
[2019-02-13] MEDS: LACTOBACILLUS RHAMNOSUS GG 1 EACH CAP.SPRINK GT SCH ×2 (08:24→16:37)
[2019-02-13] MEDS: RIFAXIMIN 550 MG TABLET GT SCH ×2 (08:24→16:37)
[2019-02-13] MEDS: FERROUS SULFATE UDC 300 MG/5 ML UDC GT SCH ×2 (08:24→16:37)
[2019-02-13] MEDS: POTASSIUM CHLORIDE 20 MEQ POWDER PACKET GT SCH (08:24)
[2019-02-13] MEDS: ERYTHROMYCIN BASE OPHTH 3.5 GM TUBE EACHEYE SCH ×2 (08:25→20:50)
[2019-02-13] MEDS: BRIMONIDINE TARTRATE OPHT SOLN 5 ML BOTTLE EACHEYE SCH (08:25)
[2019-02-13] MEDS: CHLORHEXIDINE GLUCONATE 15 ML UDC MM SCH ×2 (08:26→20:46)
[2019-02-13] MEDS: DAKINS QUARTER STRENGTH (0.125%) 480 ML BOTTLE TOP SCH (08:27)
[2019-02-13 12:00] VITALS: BP_SYST 103; BP_SYST 123; BP_DIAS 48; BP_DIAS 72
--- NOTE | 2019-02-13 12:30 | NUR ---
SECURITIES SETTLEMENT PROCESSOR NOTES WOUND CARE ON ALL SITES WAS ALSO DONE WHILE DOING PATIENT CARE WITH THE DROP PRESS HAND AT THIS TIME. PATIENT REMAINS ON STABLE CONDITION AT THIS TIME. WILL CONTINUE TO MONITOR CLOSELY.
[2019-02-13 16:00] VITALS: BP 132/65
--- NOTE | 2019-02-13 18:51 | NUR ---
RN CLOSING NOTES PATIENT IN BED SLEEPING COMFORTABLY. NO SIGNS OF PAIN OR ACUTE DISTRESS AT THIS TIME. PATIENT ABLE TO RESPOND TO VERBAL AND TACTILE STIMULI. HOB ELEVATED AT ALL TIMES. PT ON VENTILATOR WITH PRESCRIBED VENT SETTINGS. RESPIRATIONS EVEN & UNLABORED. SUCTIONED TO MAINTAIN PATENT AIRWAY. PT HAS A KAYLEY MIDLINE 18G AND ALSO A R HAND 20G. FLUSHING WELL AND PATENT. NO S/S OF INFECTION. PATIENT CONTINUES GT FEEDING @ 65CC/HR, NO GASTRIC RESIDUAL NOTED, FLUSHED PATENT. KAPOOR CATHETER INTACT AND PATENT WITH MARÍA COLOR URINE. RECTAL TUBE IN PLACED WITH LIGHT BROWN LIQUID FECAL OUTPUT NOTED. REPOSITION Q2HRS. PT IS COMFORTABLE AT THIS TIME. ALL NEEDS ANTICIPATED. KEPT CLEAN AND DRY. CALL LIGHT WITHIN REACHED. BED IS LOCKED AND IN LOWEST POSITION. WILL CONTINUE TO MONITOR.
[2019-02-13 20:00] VITALS: BP 111/69
--- NOTE | 2019-02-13 20:00 | NUR ---
eben rn notes received pts in bed with eye open , continue on ventilator dependent sating 97-98%, no sob no distress noted , breathing even and unlabored , v/s stable afebrile , with midline on r ua intact and patent , due meds given as order all due meds given as ordered call light within reach gt feeding well tolerated no residual no vomiting noted , pts on f/c intact and patent draining with yellowish urine output pts also on flexiseal intact and patent. hob elevated for aspiration precaution suction secretion done and prn , turn and reposition , kept pts clean dry and comfortable.
[2019-02-13] MEDS ORDERED: VANCOMYCIN 1 GM in IV D5W 250 ML IV SCH (23:00)
[2019-02-13] MEDS: INSULIN REGULAR, HUMAN 100 UNIT/ML 3 ML VIAL SQ PRN (23:05)
--- NOTE | 2019-02-13 23:12 | NUR ---
eben rn notes pts blood sugar for 12mn is 78 mg/dl no insulin coverage given per sliding scale. pts on gt feeding, tolerated well.
[2019-02-14] VITALS: BP 102/66
[2019-02-14] MEDS: NYSTATIN TOP POWDER 15 GM BOTTLE TP SCH ×2 (00:58→12:30)
[2019-02-14] MEDS: IPRATROPIUM NEB FS 0.5 MG/2.5 ML AMPUL.NEB NEB SCH ×3 (01:12→13:37)
[2019-02-14] MEDS: ALBUTEROL FS 2.5 MG/0.5 ML VIAL.NEB NEB SCH ×3 (01:12→13:36)
[2019-02-14 04:00] VITALS: BP 112/68
[2019-02-14] MEDS: METOCLOPRAMIDE HCL 10 MG/2 ML VIAL IV SCH (04:21)
[2019-02-14] MEDS: MEROPENEM 1 G in IV NS 0.9% 100 ML IV SCH (05:10)
[2019-02-14] MEDS: BLOOD SUGAR DIAGNOSTIC 1 EACH STRIP IN SCH ×2 (05:24→11:58)
[2019-02-14] MEDS: INSULIN REGULAR, HUMAN 100 UNIT/ML 3 ML VIAL SQ PRN (05:25)
--- NOTE | 2019-02-14 05:28 | NUR ---
PAOLA RN NOTES BLOOD SUGAR FOR 6AM IS 104 MG/DL NO INSULIN COVERAGE GIVEN PER SLIDING SCALE, PTS CONTINUE ON GT FEEDING.
[2019-02-14 06:24] LABS: CALCIUM, SERUM 8.7 mg/dL (8.5-10.1); CARBON DIOXIDE 27 mmol/L (21-32); CHLORIDE 99 mmol/L (98-107); CREATININE 0.9 mg/dL (0.6-1.3); GLUCOSE 102 mg/dL (74-106); MAGNESIUM 2.5 mg/dL (1.8-2.4); POTASSIUM 4.1 mmol/L (3.5-5.1); SODIUM SERUM 133 mmol/L (136-145); UREA NITROGEN, BLOOD 36 mg/dL (7-18)
[2019-02-14 06:27] LABS: BASOPHILS # (AUTO) 0.1 /CMM (0.0-0.2); BASOPHILS % (AUTO) 0.8 % (0.0-2.0); EOSINOPHILS % (AUTO) 2.9 % (0.0-6.0); HEMATOCRIT 31 % (33-45); HEMOGLOBIN 10.1 g/dL (11.5-14.8); LYMPHOCYTES % (AUTO) 13.8 % (20.0-44.0); MEAN CORPUSCULAR HGB CONC 33 g/dl (31.0-36.0); MEAN CORPUSCULAR VOLUME 92 fL (82-100); MONOCYTES # (AUTO) 1.3 /CMM (0.1-1.30); MONOCYTES % (AUTO) 17.6 % (2.0-12.0); NEUTROPHILS # (AUTO) 4.9 /CMM (1.8-8.9); NEUTROPHILS % (AUTO) 64.9 % (43.0-81.0); PLATELET COUNT (AUTO) 112 /CMM (150-450); RED BLOOD CELL COUNT(AUTO) 3.34 MIL/uL (4.0-5.2); WHITE BLOOD COUNT (AUTO) 7.6 K/uL (4.3-11.0)
--- NOTE | 2019-02-14 07:10 | NUR ---
MANAGER FRAUD OPENING NOTES RECEIVED REPORT FROM PM NURSE.PATIENT IN BED OPEN EYES. NO SIGNS OF PAIN OR ACUTE DISTRESS AT THIS TIME. PATIENT ABLE TO RESPOND TO TACTILE STIMULI. PT ON VENTILATOR ,TOLERATING SETTINGS WELL .PT ON TELE MONITOR AND NOTED WITH SINUS TACH HR 106. PT HAS A KAYLEY MIDLINE 18G AND ALSO A R HAND 20G. FLUSHING WELL AND PATENT. NO S/S OF INFECTION. GT FEEDING @ 65CC/HR, NO GASTRIC RESIDUAL NOTED, FLUSHED PATENT. KAPOOR CATHETER INTACT AND PATENT AND DRAINING WELL. RECTAL TUBE IN PLACED WITH LIGHT BROWN LIQUID FECAL OUTPUT NOTED, NOTED WITH GENERALIZED EDEMA. PT IS COMFORTABLE AT THIS TIME.. CALL LIGHT WITHIN REACHED. BED IS LOCKED AND IN LOWEST POSITION. SRX3.WILL CONTINUE TO MONITOR.
--- NOTE | 2019-02-14 07:30 | NUR ---
Received female trach pt unlabored on a mechanical vent. Pt trach is secure. Vent is plugged into a red outlet, alarms are set and audible, and BMV is at bedside. Addendum: 02/14/19 at 0731 by ALVARADO BALL RT Amended: Links added.
[2019-02-14 08:00] VITALS: BP 107/60
[2019-02-14] MEDS: ERYTHROMYCIN BASE OPHTH 3.5 GM TUBE EACHEYE SCH (08:35)
[2019-02-14] MEDS: MULTIPLE VIT (LYCOPENE/FA/MV,CA,IRON,MIN/LUT)1 TAB GT SCH (08:35)
[2019-02-14] MEDS: BRIMONIDINE TARTRATE OPHT SOLN 5 ML BOTTLE EACHEYE SCH (08:35)
[2019-02-14] MEDS: LACTOBACILLUS RHAMNOSUS GG 1 EACH CAP.SPRINK GT SCH (08:36)
[2019-02-14] MEDS: MIDODRINE HCL (5MG) 5 MG TABLET PO SCH ×2 (08:36→13:00)
[2019-02-14] MEDS: FAMOTIDINE (20 MG) 20 MG TABLET GT SCH (08:37)
[2019-02-14] MEDS: FOLIC ACID 1 MG TABLET GT SCH (08:37)
[2019-02-14] MEDS: POTASSIUM CHLORIDE 20 MEQ POWDER PACKET GT SCH (08:37)
[2019-02-14] MEDS: ASCORBIC ACID 500 MG TABLET PO SCH (08:37)
[2019-02-14] MEDS: ACETAMINOPHEN 650 MG/20.3 ML UDC GT SCH (08:37)
[2019-02-14] MEDS: CHLORHEXIDINE GLUCONATE 15 ML UDC MM SCH (08:37)
[2019-02-14] MEDS: FERROUS SULFATE UDC 300 MG/5 ML UDC GT SCH (08:37)
[2019-02-14] MEDS: RIFAXIMIN 550 MG TABLET GT SCH (08:39)
[2019-02-14] MEDS: DAKINS QUARTER STRENGTH (0.125%) 480 ML BOTTLE TOP SCH (08:39)
[2019-02-14] MEDS ORDERED: LACTULOSE 10 G/15 ML UDC (PYXIS) GT SCH (09:00)
--- NOTE | 2019-02-14 09:00 | NUR ---
PAOLA RN NOTE SEEN BY ,UPDATED ABOUT PATIENT CONDITION WITH LABS.GOT NEW ORDER FOR DISCHARGE.TO DO ABDOMINAL ULTRASOUND AND RELAY RESULT TO BEFORE DISCHARGE.D/C RECTAL TUBE BEFORE D/C.HEAD OF INTEGRATED MEDIA SAE MADE AWARE.WILL CONTINUE TO MONITOR
[2019-02-14] MEDS: PROSOURCE / PROSTAT (PYXIS) 30 ML UDC GT SCH (09:04)
[2019-02-14 09:37] VITALS: BP_SYST 101
--- NOTE | 2019-02-14 11:30 | NUR ---
PAOLA RN NOTE RELAYED ABDOMINAL ULTRASOUND RESULT ,READY TO GO PER HIM.DIGITAL PERFORMANCE ANALYST SAE MADE AWARE.GOT BUFFING AND SUEDING MACHINE OPERATOR TIME 1500.WILL CONTINUE TO MONITOR.
[2019-02-14 12:00] VITALS: BP 126/64
[2019-02-14 13:00] VITALS: BP 130/70
--- NOTE | 2019-02-14 13:00 | NUR ---
RN NOTES BLOOD PRESSURE RECHECKED AT THIS TIME AND IT IS 130/70 WITH HR OF 103. MODODRINE WAS HELD AT THIS TIME. WILL CONTINUE TO MONITOR PATIENT CLOSELY.
--- NOTE | 2019-02-14 15:02 | NUR ---
PAOLA RESIDENT INTERN NOTE [facility] WITH EMT WITH RT.VITAL SIGNS STABLE.NO SOB NO DISTRESS NOTED.VENT SETTINGS TOLERATED.REPORT GIVEN TO SILVIO BLANCO AT [facility].INSTRUCTIONS GIVEN TO HER ABOUT CONTINUATION OF IV ANTIBIOTICS.RESPONSIBLE CONSTITUTION PARTY MADE AWARE ABOUT DISCHARGE. SPOKE TO NAVEED GONZALEZ.WOUND DRESSING DONE.REMOVED RECTAL TUBE.GIVEN ALL DISCHARGE PAPER WORK AND REPORT TO EMT.
--- NOTE | 2019-02-18 10:07 | NUR ---
RN NOTE CLARIFICATION OF PICTURE LABEL DONE.PATIENT DISCHARGED ON 02/14/2019
== END 2019-02-14 15:10 | DRG 870 ==
LOC: ER 10:34 → TELE-TD 13:40
PROVIDERS: ADMIT Internal Medicine; ATTEND Internal Medicine
PROC: 5A1955Z Respiratory Ventilation, Greater than 96 Consecutive Hours (ICD-10-PCS; principal; 2019-02-09)
PROC: 05H533Z Insertion of Infusion Device into Right Subclavian Vein, Percutaneous Approach (ICD-10-PCS; 2019-02-10)
DX: A41.9 Sepsis, unspecified organism (principal); L89.154 Pressure ulcer of sacral region, stage 4; R53.2 Functional quadriplegia; J96.21 Acute and chronic respiratory failure with hypoxia; K72.00 Acute and subacute hepatic failure without coma; J15.9 Unspecified bacterial pneumonia; N39.0 Urinary tract infection, site not specified; G93.49 Other encephalopathy; J98.11 Atelectasis; Z99.11 Dependence on respirator [ventilator] status; E22.2 Syndrome of inappropriate secretion of antidiuretic hormone; J44.0 Chronic obstructive pulmonary disease with (acute) lower respiratory infection; J90 Pleural effusion, not elsewhere classified; R18.8 Other ascites; E88.09 Other disorders of plasma-protein metabolism, not elsewhere classified; E11.9 Type 2 diabetes mellitus without complications; L89.020 Pressure ulcer of left elbow, unstageable; H10.9 Unspecified conjunctivitis; Z86.73 Personal history of transient ischemic attack (TIA), and cerebral infarction without residual deficits; L30.4 Erythema intertrigo; E78.5 Hyperlipidemia, unspecified; I50.9 Heart failure, unspecified; B96.20 Unspecified Escherichia coli [E. coli] as the cause of diseases classified elsewhere; D64.9 Anemia, unspecified; Z93.0 Tracheostomy status; Z93.1 Gastrostomy status; Z82.5 Family history of asthma and other chronic lower respiratory diseases; R13.10 Dysphagia, unspecified; Z16.12 Extended spectrum beta lactamase (ESBL) resistance; I11.0 Hypertensive heart disease with heart failure; H40.9 Unspecified glaucoma; R74.0 Nonspecific elevation of levels of transaminase and lactic acid dehydrogenase [LDH]; I25.2 Old myocardial infarction; I71.6 Thoracoabdominal aortic aneurysm, without rupture; D69.59 Other secondary thrombocytopenia; B96.4 Proteus (mirabilis) (morganii) as the cause of diseases classified elsewhere; B95.2 Enterococcus as the cause of diseases classified elsewhere
CPT/HCPCS: 31720; 36415; 36569; 36600; 70450-TC; 71045-TC; 76700-TC; 80048-TC; 80053-TC; 80076-TC; 80202-TC; 81000-TC; 82140-TC; 82803-TC; 82962-TC; 83605-TC; 83735-TC; 84484-TC; 85025-TC; 85730-TC; 87040-TC; 87081-TC; 87086-TC; 87186-TC; 93307-TC; 94002-TC; 94003-TC; 94760-TC; 94762-TC; 94799-TC; 99082-TC; A6253; A6402; A6403; G0378; J0696; J1815; J1940; J2185; J2765; J3370; J7030; J7040; J7050; J7060

== ENCOUNTER 2019-03-01 16:53 | Inpatient (IN) | payer OTHER ==
[~2019-03-01] VITALS: Ht 160 cm; Wt 107.0 kg
[~2019-03-01 16:53] MED LIST: ACET-2605 GT; ACET650S26 GT; AMIN30LI27 GT; BISA10SU11 RC; BRIM5DRO3 EACHEYE; CHLO473M5 MM; FAMO20TA8 GT; FERR300L GT; FLUD0.1T GT; FOLI1TAB16 GT; INSU100V3 SQ; IPRA3AMP23 IH; LACT10SO GT; MAGN400O6 GT; METH1TAB GT; MULT-1168 GT; NA P133E RC; NUT.237L30 GT; POTA20PA34 GT; PROP10TA10 GT; RIFA550T GT; VIT500LI GT
--- NOTE | 2019-03-01 17:15 | NUR ---
PT. RECEIVED AND PLACED INTO [address] [facility] VENT VIA TRACH SIZE #7 PORTEX WITH CUFF INFLATED. VENT PARAMETERS BELOW PER RT TRANSPORTER: AC 16 VT 500 FIO2 40% PEEP +5 BREATH SOUNDS BILATERAL RHONCHI. SUCTIONED MODERATE AMOUNT THICK SAEZ SECRETIONS. ALARMS IS ON AND FUNCTIONING WITH AMBUBAG @ BEDSIDE. Addendum: 03/01/19 at 1732 by JOEL CHEN RT Amended: Links added.
--- NOTE | 2019-03-01 17:20 | NUR ---
DANGELO CASTELLANO SENT HERE FROM [facility] FOR EDEMA ON ALL EXT & TO R/O PNA PER EMS. TO ER BED 8, HOOKED TO MONITOR, CHANGED TO GOWN, PROVIDED W WARM BLANKET, RT AT BEDSIDE W VENT SETTINGS OF AC 16 VT 500 O2 40 PEEP OF 5.0, AWAITING MD CABELLO.
[2019-03-01] MEDS ORDERED: SODI1TAB3 GT (17:26)
[2019-03-01] MEDS ORDERED: SACC250C GT (17:26)
[2019-03-01] MEDS ORDERED: FURO10SO2 GT (17:26)
[2019-03-01] MEDS ORDERED: VANC1PLA9 IV (17:26)
[2019-03-01] MEDS ORDERED: ZINC220T GT (17:26)
[2019-03-01] MEDS ORDERED: MIDO10TA GT (17:26)
[2019-03-01] MEDS ORDERED: ACET-73 GT (17:26)
[2019-03-01] MEDS ORDERED: LACT10SO PO (17:26)
[2019-03-01] MEDS ORDERED: PROT946L PO (17:26)
[2019-03-01] MEDS ORDERED: FLUC200P12 IV (17:26)
[2019-03-01] MEDS ORDERED: SULF1TAB48 GT (17:26)
[2019-03-01] MEDS ORDERED: ACET250T9 GT (17:26)
--- NOTE | 2019-03-01 17:38 | NUR ---
INCREASED FIO2 FROM 40% TO 60% DUE TO 88% SPO2. SPO2 99% ON 60%FIO2 Addendum: 03/01/19 at 1739 by JOEL CHEN RT Amended: Links added.
--- NOTE | 2019-03-01 17:50 | NUR ---
PT DESATURATING AT 88%, INFORMED RT, CHANGED 02 TO 60%. O2 SATURATURATION AT 96%.
--- NOTE | 2019-03-01 18:50 | NUR ---
MADE DR OSPINA AWARE THAT UNABLE TO COLLECT BLOOD SAMPLE.
--- NOTE | 2019-03-01 18:56 | NUR ---
RT NOTE: RECEIVED TRACH PT IN ER ON [facility] VENT ON NOTED SETTINGS PER MD ORDERS. TRACH IS PATENT AND SECURED. RESOURCE TECHNICIAN DONE. SX DONE PRN. VENT PLUGGED INTO RED OUTLET. ALARMS ON AND AUDIBLE. TIFFANI STREETER @ BEDSIDE. NO RESP DISTRESS AT THIS TIME. WILL CONT TO MONITOR PT. Addendum: 03/01/19 at 2147 by MARCK REDDY RT Amended: Links added.
--- NOTE | 2019-03-01 19:28 | NUR ---
REPORT GIVEN TO JUANA BLANCO FOR KAT
--- NOTE | 2019-03-01 19:28 | NUR ---
pt received from rpuert germain for camila. lab at bedside for blood draw. noted bp @ 73/36. made aware. awaiting orders.
[2019-03-01 19:30] LABS: BASOPHILS % (AUTO) 0.3 % (0.0-2.0); EOSINOPHILS % (AUTO) 0.5 % (0.0-6.0); HEMATOCRIT 31 % (33-45); HEMOGLOBIN 9.9 g/dL (11.5-14.8); LYMPHOCYTES # (AUTO) 0.4 /CMM (0.8-4.8); LYMPHOCYTES % (AUTO) 4.3 % (20.0-44.0); MEAN CORPUSCULAR HGB CONC 32 g/dl (31.0-36.0); MEAN CORPUSCULAR VOLUME 96 fL (82-100); MONOCYTES % (AUTO) 11.1 % (2.0-12.0); NEUTROPHILS # (AUTO) 7.4 /CMM (1.8-8.9); NEUTROPHILS % (AUTO) 83.8 % (43.0-81.0); RED BLOOD CELL COUNT(AUTO) 3.22 MIL/uL (4.0-5.2); WHITE BLOOD COUNT (AUTO) 8.8 K/uL (4.3-11.0)
[2019-03-01] MEDS ORDERED: ALBUMIN 25% 12.5 GM/50 ML BOTTLE IV ONE ×2 (19:30→20:30)
[2019-03-01] MEDS ORDERED: ALBUMIN 25% 100 ML IV ONE (19:34)
[2019-03-01 19:36] LABS: CALCIUM, SERUM 8.7 mg/dL (8.5-10.1); CARBON DIOXIDE 25 mmol/L (21-32); CHLORIDE 96 mmol/L (98-107); CREATININE 0.8 mg/dL (0.6-1.3); GLUCOSE 90 mg/dL (74-106); POTASSIUM 5.6 mmol/L (3.5-5.1); SODIUM SERUM 127 mmol/L (136-145); UREA NITROGEN, BLOOD 28 mg/dL (7-18)
[2019-03-01 19:42] LABS: ALANINE AMINOTRANSFERASE 34 U/L (12-78); ALBUMIN 1.5 g/dL (3.4-5.0); ALKALINE PHOSPHATASE 276 U/L (46-116); ASPARTATE AMINOTRANSFERASE 48 U/L (15-37); BILIRUBIN,DIRECT 0.5 mg/dL (0.0-0.2); BILIRUBIN,TOTAL 0.9 mg/dL (0.2-1.0); TOTAL PROTEIN, SERUM 6.4 g/dL (6.4-8.2)
--- NOTE | 2019-03-01 19:48 | NUR ---
urine obtained from md alex aware. sent to lab
[2019-03-01] MEDS ORDERED: IV NS 0.9% 1,000 ML BAG IV ONE ×2 (20:00→21:00)
--- NOTE | 2019-03-01 20:05 | NUR ---
BP NOTED AT 56/36. ALBUMIN COMPLETED. MD MADE AWARE RECEIVED VERBAL ORDER TO GIVE ANOTHER 25MG ALBUMIN VIA IV.
[2019-03-01] MEDS ORDERED: ALBUMIN 25% 50 ML IV ONE ×2 (20:06→20:12)
--- NOTE | 2019-03-01 20:13 | NUR ---
CALLED DR NAVARRETE, ON THE PHONE WITH DR OSPINA
--- NOTE | 2019-03-01 20:15 | NUR ---
ICU 257 DR NAVARRETE
[2019-03-01] MEDS ORDERED: SULFAMETHOXAZOLE/TRIMETHOPRIM 25 ML in IV D5W 500 ML IV ONE (20:30)
[2019-03-01] MEDS ORDERED: SULFAMETHOXAZOLE/TRIMETHOPRIM 5 ML in IV D5W 250 ML IV SCH (20:30)
[2019-03-01 20:40] LABS: APPEARANCE,URINE Turbid (CLEAR); BILIRUBIN,URINE Negative (NEGATIVE); BLOOD, URINE Large Ery/uL (NEGATIVE); COLOR,URINE Yellow (YELLOW); KETONES,URINE Negative (NEGATIVE); LEUKOCYTE ESTERASE ,URINE Large (NEGATIVE); NITRITE, URINE Negative (NEGATIVE); PH,URINE 5.5 (5.0-8.0); PROTEIN,URINE 30 mg/dl (NEGATIVE); UGLUCOSE Negative (NEGATIVE)
[2019-03-01 20:46] LABS: PLATELET COUNT (AUTO) 72 /CMM (150-450)
[2019-03-01 20:49] LABS: BACTERIA,URINE 3+ /HPF (None Seen); RBC,URINE 51-80 /HPF (0-2); SQUAMOUS EPITHELIAL CELL,UR Few /HPF (None Seen); WBC,URINE 81-100 /HPF (0-3)
--- NOTE | 2019-03-01 20:49 | NUR ---
RECEIVED CALL FROM NASEEM BUCHANAN RESOURCE ROOM TEACHER TO GIVE PT INFO.
[2019-03-01] MEDS ORDERED: NOREPINEPHRINE 4 MG/4 ML AMPUL IV ONE (20:53)
[2019-03-01 20:57] LABS: EOSINOPHILS % (MANUAL) 1 % (0-4); LYMPHOCYTES % (MANUAL) 10 % (16-48); MONOCYTES % (MANUAL) 8 % (0-11.0); NEUTROPHILS % (MANUAL) 81 (42-76)
[2019-03-01] MEDS ORDERED: NOREPINEPHRINE 8 MG in IV D5W 500 ML IV ONE (21:00)
--- NOTE | 2019-03-01 21:16 | NUR ---
FRANKLYN BLACNO PICC LINE NURSE AT BEDSIDE.
--- NOTE | 2019-03-01 22:00 | NUR ---
REPORT GIVEN TO ED, RN PT GOING TO ICU 255
--- NOTE | 2019-03-01 22:40 | NUR ---
PT BEING TRANSPORTED TO ICU WITH ACLS PROTOCOL. RN, RT AND TECH AT BEDSIDE WHILE TRANSPORTING.
--- NOTE | 2019-03-01 23:00 | NUR ---
Carissa youssef in [facility] - 03/01/19 at 2317 by BELEN BACITRACIN OINT APPLIED. COVERED WITH ISLAND DRESSING AND TELFA
[2019-03-01 23:15] VITALS: BP 126/73
--- NOTE | 2019-03-01 23:15 | NUR ---
RECEIVED TRACH PORTEX PT FROM ER ON [facility] VENT WITH NOTED SETTINGS. TRACH IS PATENT AND SECURED. BARREL WASHER DONE. SX DONE PRN. VENT PLUGGED INTO RED OUTLET. ALARMS ON AND AUDIBLE. AMBU BAG @ BEDSIDE. NO RESP DISTRESS NOTED AT THIS TIME. WILL CONT TO MONITOR PT.
[2019-03-01] MEDS ORDERED: IV NS 0.9% 1,000 ML IV SCH (23:30)
[2019-03-01] MEDS ORDERED: NOREPINEPHRINE 8 MG in IV D5W 500 ML IV PRN (23:30)
[2019-03-02] VITALS (49 sets, daily range): BP systolic 0–133; BP diastolic 0–95
[2019-03-02] MEDS ORDERED: MEROPENEM 1 G VIAL IV ONE (00:04)
[2019-03-02] MEDS: MEROPENEM 1 G in IV NS 0.9% 100 ML IV SCH ×4 (00:06→21:01)
--- NOTE | 2019-03-02 02:09 | NUR ---
TIMBER BUYER. ADMISSION. RECEIVED THE PT FROM ER VIA GURNEY. PT IS OBTUNDED, TRACH TO VENT CONNECTED, PORTEX#7, AC 16, TV 500, FIO2 60%, FC PATENT, IV LT UPPER ARM PICC LINE, RT UPPER ARM MID LINE. LEVOPHED STARTED FROM ER 2MCG/MIN, NS 100ML/H, GT CLAMPED. MULTIPLE WOUND NOTED. ANASARCA, TERA HAND WEEPING. LOW TEMPERATURE. WILL CONTINUE TO MONITOR,
--- NOTE | 2019-03-02 03:47 | NUR ---
DETAILER SCHOOL PHOTOGRAPHS. AM CARE, ORAL CARE, BED BATH GIVEN. LINEN CHANGED, REMAINING SAME OXYGEN TOLERATED WELL. SAT 98%, NO ACUTE DISTRESS NOTED, STORAGE BATTERY CHARGER SHOWING NSR, IV RT AND LT HAND, IVF NS 100ML/H, AFEBRILE. HOB ELEVATED. PT IS VERY LETHARGIC, TURN AND REPOSITION Q2H, FC PATENT, URINE DRAINING, WILL CONTINUE TO MONITOR VITALS
[2019-03-02 04:57] LABS: BASOPHILS % (AUTO) 0.1 % (0.0-2.0); EOSINOPHILS % (AUTO) 0.6 % (0.0-6.0); HEMATOCRIT 28 % (33-45); LYMPHOCYTES # (AUTO) 0.5 /CMM (0.8-4.8); LYMPHOCYTES % (AUTO) 5.2 % (20.0-44.0); MEAN CORPUSCULAR HGB CONC 32 g/dl (31.0-36.0); MEAN CORPUSCULAR VOLUME 95 fL (82-100); MONOCYTES # (AUTO) 1.1 /CMM (0.1-1.30); MONOCYTES % (AUTO) 12.7 % (2.0-12.0); NEUTROPHILS # (AUTO) 7.3 /CMM (1.8-8.9); NEUTROPHILS % (AUTO) 81.4 % (43.0-81.0); PLATELET COUNT (AUTO) 66 /CMM (150-450); RED BLOOD CELL COUNT(AUTO) 2.93 MIL/uL (4.0-5.2)
[2019-03-02 05:28] LABS: SERUM AMMONIA 93 umol/L (11-32)
[2019-03-02 05:38] LABS: ALANINE AMINOTRANSFERASE 25 U/L (12-78); ALBUMIN 2.2 g/dL (3.4-5.0); ALKALINE PHOSPHATASE 241 U/L (46-116); ASPARTATE AMINOTRANSFERASE 50 U/L (15-37); BILIRUBIN,TOTAL 1.1 mg/dL (0.2-1.0); CALCIUM, SERUM 8.8 mg/dL (8.5-10.1); CARBON DIOXIDE 26 mmol/L (21-32); CHLORIDE 94 mmol/L (98-107); CREATININE 0.8 mg/dL (0.6-1.3); GLUCOSE 75 mg/dL (74-106); POTASSIUM 5.5 mmol/L (3.5-5.1); SODIUM SERUM 126 mmol/L (136-145); TOTAL PROTEIN, SERUM 6.4 g/dL (6.4-8.2); UREA NITROGEN, BLOOD 29 mg/dL (7-18)
--- NOTE | 2019-03-02 05:58 | NUR ---
LAST MERREM WAS 0000.0600 NOT GIVEN. TO EARLY
[2019-03-02 06:28] LABS: BAND % (MANUAL) 6 % (0.0-5.0); LYMPHOCYTES % (MANUAL) 3 % (16-48); MONOCYTES % (MANUAL) 6 % (0-11.0); NEUTROPHILS % (MANUAL) 85 (42-76)
[2019-03-02 06:30] LABS: WHITE BLOOD COUNT (AUTO) 8.9 K/uL (4.3-11.0)
--- NOTE | 2019-03-02 07:15 | NUR ---
DELIVERY HELPER INITIAL NOTES RECEIVED PT ON VENTILATOR. PT OBTUNDENT. VENT SETTINGS ASSESSED FOR ACCURACY. PT TOLERATING SETTINGS WELL. VSS AT THIS TIME. NO SOB OR ACUTE SIGNS OF DISTRESS NOTED. BREATHING IS EVEN AND UNLABORED. KAPOOR CATHETER NOTED TO BE DRAINING TO GRAVITY. CENTRAL LINES NOTED TO BE C/D/I. PT TOLERATING NS INFUSION WELL. NO REDNESS OR SIGNS OF INFILTRATION NOTED. BED IN LOW LOCKED POSITION, SIDE RAILS UP X3. WILL CONTINUE TO MONITOR
[2019-03-02] MEDS ORDERED: Medication Not On Formulary EA (Ipratropium/Albuterol Sulfate (Duoneb 2.5-0.5 Mg/3 Ml So IH PRN (08:00)
[2019-03-02] MEDS ORDERED: ACETAMINOPHEN 650 MG/20.3 ML UDC GT PRN (08:00)
[2019-03-02] MEDS ORDERED: LACTULOSE 10 G/15 ML UDC (PYXIS) PO PRN (08:00)
[2019-03-02] MEDS ORDERED: BISACODYL SUPP (10 MG) 10 MG/SUPP.RECT SUPP.RECT RC PRN (08:00)
[2019-03-02] MEDS ORDERED: SODIUM POLYSTYRENE SULFONATE 15 G/60 ML BOTTLE PO ONE (08:00)
--- NOTE | 2019-03-02 08:02 | NUR ---
RT PATIENT REC'D TRACHED ON [facility] VENT. VENT ALARMS CHECKED + AUDIBLE. CUFF PRESSURE CHECKED WINE CONSULTANT. AMBU BAG AT HOB Addendum: 03/02/19 at 1039 by TR GRADY RT Amended: Links added.
--- NOTE | 2019-03-02 08:13 | NUR ---
COLLAR TRIMMER NOTES (MD ROUNDING) DR NAVARRETE AT BEDSIDE. MD MADE AWARE OF PT'S CONDITION, RECENT LABS, AND VITALS. MD ALSO MADE OF PT'S ONGOING ANASARCA AND HIGH RESIDUALS ASPIRATED FROM GTUBE. PER MD "HOLD GTUBE FEEDINGS, MEDS CAN BE GIVEN THROUGH GTUBE, AND DECREASE RATED OF IV FLUIDS FROM 100ML.HR TO 75"
[2019-03-02] MEDS ORDERED: Medication Not On Formulary EA (Saccharomyces Boulardii (Florastor) 250 MG) GT SCH (09:00)
[2019-03-02] MEDS ORDERED: IPRATROPIUM NEB FS 0.5 MG/2.5 ML AMPUL.NEB NEB PRN (09:00)
[2019-03-02] MEDS ORDERED: MEROPENEM 1 G in IV NS 0.9% 100 ML IV SCH (09:00)
[2019-03-02] MEDS ORDERED: ALBUTEROL FS 2.5 MG/0.5 ML VIAL.NEB NEB PRN (09:00)
[2019-03-02] MEDS: IV NS 0.9% 1,000 ML IV PRN (09:47)
[2019-03-02] MEDS: LACTULOSE 10 G/15 ML UDC (PYXIS) GT SCH (09:54)
[2019-03-02] MEDS: BRIMONIDINE TARTRATE OPHT SOLN 5 ML BOTTLE EACHEYE SCH (09:54)
[2019-03-02] MEDS: SODIUM CHLORIDE 1000 MG TABLET.SOL GT SCH ×2 (09:55→17:22)
[2019-03-02] MEDS: FOLIC ACID 1 MG TABLET GT SCH (09:55)
[2019-03-02] MEDS: MIDODRINE HCL (5MG) 5 MG TABLET GT SCH ×3 (09:55→17:22)
[2019-03-02] MEDS: FERROUS SULFATE UDC 300 MG/5 ML UDC GT SCH ×2 (09:55→17:22)
[2019-03-02] MEDS: SULFAMETH/TRIMETH 800/160 MG 1 UDTAB TABLET PO SCH ×2 (09:55→17:23)
[2019-03-02] MEDS: FAMOTIDINE (20 MG) 20 MG TABLET GT SCH ×2 (09:56→17:22)
[2019-03-02] MEDS: ASCORBIC ACID 500 MG TABLET GT SCH (09:56)
[2019-03-02] MEDS: LACTOBACILLUS RHAMNOSUS GG 1 EACH CAP.SPRINK PO SCH ×2 (09:56→17:23)
[2019-03-02] MEDS: RIFAXIMIN 550 MG TABLET GT SCH ×2 (09:56→17:22)
[2019-03-02] MEDS: FUROSEMIDE 20 MG/2 ML VIAL IV SCH ×2 (09:56→17:26)
[2019-03-02] MEDS: ZINC SULFATE 220 MG CAPSULE PO SCH (09:57)
[2019-03-02] MEDS: MULTIPLE VIT (LYCOPENE/FA/MV,CA,IRON,MIN/LUT)1 TAB GT SCH (09:57)
[2019-03-02] MEDS: acetaZOLAMIDE 250 MG TABLET GT SCH (09:57)
[2019-03-02] MEDS: CHLORHEXIDINE GLUCONATE 15 ML UDC MM SCH ×2 (09:58→21:16)
[2019-03-02] MEDS: PROSTAT (PYXIS) 30 ML UDC GT SCH (09:58)
[2019-03-02] MEDS ORDERED: Z GUARD REMEDY 2 OZ OINT TP PRN (15:30)
[2019-03-02] MEDS ORDERED: INSULIN REGULAR, HUMAN 100 UNIT/ML 3 ML VIAL SQ PRN (16:00)
[2019-03-02] MEDS ORDERED: DEXTROSE 50%-WATER 50 ML DISP.SYRIN IV PRN (16:00)
[2019-03-02] MEDS: BLOOD SUGAR DIAGNOSTIC 1 EACH STRIP IN SCH (17:26)
--- NOTE | 2019-03-02 19:34 | NUR ---
SALES AND MARKETING INTERN NOTES: TUBE FEEDING INITIATION DR NAVARRETE MADE AWARE OF PT'S LOW BLOOD SUGARS. TELEPHONE ORDER OBTAINED FROM MD TO RESUME TUBE FEEDINGS. PT HAS NO RESIDUALS AT THIS TIME
--- NOTE | 2019-03-02 19:35 | NUR ---
ICU/HARD ROCK DRILL OPERATOR RECEIVED REPORT FROM DAY NURSE. SEE FLOWSHEET FOR ASSESSMENT ALONG WITH ALL SKIN ISSUES WHICH ARE ADDRESSES AND EACH INTERVENTIONS TO THEM. PT CURRENTLY HAS NS@75ML, WITH IVPB, SEE IV SPREADSHEET. PT IS OBTUNDED, PT RESPONDS TO PAINFUL STIMULI. PT IS VENTED TOLERATING CURRENT SETTINGS, WITH SATURATION AT 99%. PT WS TURNED AND REPOSITIONED FOR COMFORT AND CARE. WILL CONTINUE TO MONITOR THIS PT.NO ACUTE DISTRESS SEEN AT THIS TIME.
--- NOTE | 2019-03-02 19:38 | NUR ---
HELICOPTER SPECIALIST CLOSING NOTES PT REMAIN STABLE ON VENT. VSS. NIGHTSHIFT RN MADE AWARE OF PT'S BLOOD SUGAR AND TUBE FEEDING ORDER OBTAINED FROM . PRN CARE RENDERED. PT REPOSITIONED AND TURNED PER PROTOCOL. ALL NEEDS ANTICIPATED FOR AND MET. NO ACUTE CHANGES IN CONDITION DURING SHIFT, ENDORSE TO NIGHTSHIFT RN FOR KAT
[2019-03-02] MEDS ORDERED: GLUCERNA 1.2 1,000 ML BOTTLE NG PRN (20:00)
--- NOTE | 2019-03-02 20:10 | NUR ---
ICU/COUNTY COMMISSIONER SPOKE TO PT'S SISTER, GAVE HER UPDATE ON STATUS. MADE HER AWARE THAT THE PT COULD BE DOWNGRADED TO A NEW ROOM IN [place].
--- NOTE | 2019-03-02 21:30 | NUR ---
ICU/DIRECTOR OF AUDIOLOGY TUBE FEEDING STARTED ON THIS PT, DUE TO LOW BLOOD SUGARS. WILL MONITOR THIS PT'S SUGARS.
--- NOTE | 2019-03-02 21:48 | NUR ---
RECEIVED PT TRACHED ON VENT. NO RESP DISTRESS. PT TOLERATING VENT SETTINGS. SX'D FOR MOD AMT OF TINGED SECRETIONS. VENT ALARMS SET AND AUDIBLE. TRACH CUFF TEST RACK OPERATOR. VENT PLUGGED INTO RED OUTLET. AMBU BAG AT BEDSIDE. WILL CONTINUE TO MONITOR. Addendum: 03/02/19 at 2149 by JUANA BRANHAM RT Amended: Links added.
--- NOTE | 2019-03-02 22:00 | NUR ---
ICU/DETAILER CHANGED OUT THE KAPOOR BAG, ONE WITH METER TO CLOSELY MONITOR OUTPUT .
[2019-03-03] VITALS: BP 117/77
--- NOTE | 2019-03-03 00:09 | NUR ---
PT TRANSFERRED TO [place] 102.
[2019-03-03] MEDS: BLOOD SUGAR DIAGNOSTIC 1 EACH STRIP IN SCH ×4 (00:13→17:09)
--- NOTE | 2019-03-03 00:24 | NUR ---
ICU/DOCK BUILDER PT TRANSFERRED TO ROOM 102, WITH ACLS PRECAUTIONS. REPORT GIVEN TO [place] NURSE ROBERT. MADE AWARE OF THE MIDNIGHT BS OF 62. ALSO THAT THE G/TUBE WHEN FLUSHED MADE AN UNUSUAL SOUND. AND THAT FEEDING WAS STARTED AT 20ML TO MONITOR THE FEEDING AND RESIDUALS CLOSELY.
--- NOTE | 2019-03-03 00:30 | NUR ---
RN INITIAL NOTES RECEIVED PT ON VENTILATOR, VENT SETTINGS ASSESSED FOR ACCURACY. PT TOLERATING SETTINGS WELL.PT OBTUNDENT.VSS AT THIS TIME. NO SOB OR ACUTE SIGNS OF DISTRESS NOTED. BREATHING IS EVEN AND UNLABORED. KAPOOR CATHETER NOTED TO BE DRAINING TO GRAVITY. L UPPER ARM PICC NOTED TO BE C/D/I, WITH NS NS INFUSING WELL. NO REDNESS OR SIGNS OF INFILTRATION NOTED. R U MIDLINE S/L. G TUBE FEED INFUSING. BED IN LOW LOCKED POSITION, SIDE RAILS UP X3. WILL CONTINUE TO MONITOR
[2019-03-03 04:00] VITALS: BP 114/71
[2019-03-03] MEDS: IV NS 0.9% 1,000 ML IV PRN (05:20)
--- NOTE | 2019-03-03 06:23 | NUR ---
RN CLOSING NOTES PT REMAIN STABLE ON VENT. VSS. TUBE FEEDING RUNNING ORDERED. IV FLUID RUNNING IN R UA MIDLINE. L UA PICC LINE IN PLACE. KAPOOR IN PLACE. PT REPOSITIONED AND TURNED PER PROTOCOL. ALL NEEDS ANTICIPATED FOR AND MET. NO ACUTE CHANGES IN CONDITION DURING SHIFT, ENDORSE TO AM SHIFT RN FOR KAT
--- NOTE | 2019-03-03 07:30 | NUR ---
TELE1/RN ROUNDS - DR. NAVARRETE PT SEEN & EXAMINED BY DR. NAVARRETE. NO NEW ORDERS RECEIVED AT THIS TIME. MONITORING CONTINUED.
--- NOTE | 2019-03-03 07:49 | NUR ---
TD/RN AM SHIFT INITIAL NOTES RECEIVED PT ASLEEP IN BED, PT IS OBTUNDED, OPEN EYES. NO GRIMACING OR FEVER, NO ACUTE CHANGE OF CONDITION. VENT DEPENDENT, RATES SET PRESCRIBED, SATURATING @ 94% , LUNG SOUNDS CLEAR, RESPIRATIONS EVEN AND UNLABORED. SUCTIONED FOR AIRWAY CLEARANCE. ON TELE MONITORING, SINUS RHYTHM WITH ACCELERATED JUNCTIONAL RHYTHM, HR 94 . IVS SITE FLUSHED, PATENT WITH NO S/S OF INFECTION, POSITIVE BLOOD RETURN, ON GOING IV INFUSION OF NS @ 75CC/HR. PT NOTED WITH GENERALIZED ANASARCA. ON GOING GT FEEDING @ 30CC/HR (GOAL: 65CC/HR), NO GASTRIC RESIDUAL NOTED, FLUSHED PATENT. KAPOOR CATHETER INTACT WITH MARÍA COLORED URINE OUTPUT. . PT IS COMFORTABLE, SCHEDULED AM MEDS TO BE GIVEN. CL WITHIN REACHED AND SAFETY MAINTAINED. ON GOING MONITORING.
[2019-03-03 08:00] VITALS: BP 118/72
[2019-03-03] MEDS: CHLORHEXIDINE GLUCONATE 15 ML UDC MM SCH ×2 (08:25→21:16)
[2019-03-03] MEDS: BRIMONIDINE TARTRATE OPHT SOLN 5 ML BOTTLE EACHEYE SCH (08:25)
[2019-03-03] MEDS: LACTULOSE 10 G/15 ML UDC (PYXIS) GT SCH ×3 (08:25→16:28)
[2019-03-03] MEDS: SODIUM CHLORIDE 1000 MG TABLET.SOL GT SCH ×2 (08:26→16:29)
[2019-03-03] MEDS: FUROSEMIDE 20 MG/2 ML VIAL IV SCH (08:26)
[2019-03-03] MEDS: RIFAXIMIN 550 MG TABLET GT SCH ×2 (08:27→16:29)
[2019-03-03] MEDS: FERROUS SULFATE UDC 300 MG/5 ML UDC GT SCH ×2 (08:27→16:29)
[2019-03-03] MEDS: MULTIPLE VIT (LYCOPENE/FA/MV,CA,IRON,MIN/LUT)1 TAB GT SCH (08:27)
[2019-03-03] MEDS: FOLIC ACID 1 MG TABLET GT SCH (08:27)
[2019-03-03] MEDS: FAMOTIDINE (20 MG) 20 MG TABLET GT SCH ×2 (08:27→16:29)
[2019-03-03] MEDS: ZINC SULFATE 220 MG CAPSULE PO SCH (08:27)
[2019-03-03] MEDS: LACTOBACILLUS RHAMNOSUS GG 1 EACH CAP.SPRINK PO SCH ×2 (08:27→16:29)
[2019-03-03] MEDS: SULFAMETH/TRIMETH 800/160 MG 1 UDTAB TABLET PO SCH ×2 (08:27→16:29)
[2019-03-03] MEDS: MIDODRINE HCL (5MG) 5 MG TABLET GT SCH ×3 (08:27→16:29)
[2019-03-03] MEDS: ASCORBIC ACID 500 MG TABLET GT SCH (08:27)
[2019-03-03] MEDS: PROSTAT (PYXIS) 30 ML UDC GT SCH (08:32)
[2019-03-03] MEDS: MEROPENEM 1 G in IV NS 0.9% 100 ML IV SCH ×2 (08:32→21:16)
[2019-03-03] MEDS: acetaZOLAMIDE 250 MG TABLET GT SCH (08:33)
[2019-03-03 08:54] LABS: BASOPHILS % (AUTO) 0.2 % (0.0-2.0); EOSINOPHILS % (AUTO) 0.7 % (0.0-6.0); HEMATOCRIT 27 % (33-45); LYMPHOCYTES # (AUTO) 0.8 /CMM (0.8-4.8); LYMPHOCYTES % (AUTO) 9.2 % (20.0-44.0); MEAN CORPUSCULAR HGB CONC 33 g/dl (31.0-36.0); MEAN CORPUSCULAR VOLUME 93 fL (82-100); MONOCYTES # (AUTO) 1.3 /CMM (0.1-1.30); NEUTROPHILS # (AUTO) 6.8 /CMM (1.8-8.9); NEUTROPHILS % (AUTO) 75.9 % (43.0-81.0); PLATELET COUNT (AUTO) 68 /CMM (150-450)
[2019-03-03 09:15] LABS: ALANINE AMINOTRANSFERASE 33 U/L (12-78); ALBUMIN 1.9 g/dL (3.4-5.0); ALKALINE PHOSPHATASE 223 U/L (46-116); ASPARTATE AMINOTRANSFERASE 51 U/L (15-37); BILIRUBIN,TOTAL 1.3 mg/dL (0.2-1.0); CALCIUM, SERUM 8.6 mg/dL (8.5-10.1); CARBON DIOXIDE 22 mmol/L (21-32); CHLORIDE 96 mmol/L (98-107); CREATININE 1.1 mg/dL (0.6-1.3); GLUCOSE 84 mg/dL (74-106); MAGNESIUM 2.2 mg/dL (1.8-2.4); PHOSPHORUS 3.7 mg/dL (2.5-4.9); POTASSIUM 5.2 mmol/L (3.5-5.1); SODIUM SERUM 126 mmol/L (136-145); TOTAL PROTEIN, SERUM 6.2 g/dL (6.4-8.2); UREA NITROGEN, BLOOD 35 mg/dL (7-18)
[2019-03-03 09:25] LABS: BAND % (MANUAL) 11 % (0.0-5.0); EOSINOPHILS % (MANUAL) 1 % (0-4); LYMPHOCYTES % (MANUAL) 9 % (16-48); MONOCYTES % (MANUAL) 11 % (0-11.0); NEUTROPHILS % (MANUAL) 68 (42-76)
--- NOTE | 2019-03-03 09:44 | NUR ---
RT PATIENT REC'D TRACHED ON [facility] VENT. VENT ALARMS CHECKED + AUDIBLE. PATIENT NON VERBAL OR RESPONSIVE TO COMMANDS. SUCTIONED WITH SMALL AMT OF PALE SECRETIONS. AMBU BAG AT HOB Addendum: 03/03/19 at 1758 by TR GRADY RT Amended: Links added.
[2019-03-03 10:04] LABS: SERUM AMMONIA 189 umol/L (11-32)
[2019-03-03] MEDS ORDERED: BUMETANIDE INJ 8 MG in IV NS 0.9% 48 ML IV ONE (11:00)
[2019-03-03 11:47] LABS: BILIRUBIN,DIRECT 0.9 mg/dL (0.0-0.2)
[2019-03-03 12:00] VITALS: BP 127/76
--- NOTE | 2019-03-03 14:00 | NUR ---
TELE1/FIELD MARKETING TEAM LEADER OF CARE REPORT GIVEN TO NURSE CARLOS, ENDORSED TO CONTINUE CARE.
[2019-03-03 16:00] VITALS: BP 128/79
--- NOTE | 2019-03-03 18:21 | NUR ---
CLINICAL SPECIALIST NOTES NO SIGNIFICANT CHANGES NOTED THROUGHOUT THE SHIFT.PATIENT REMAINS OBTUNDED ON VENT TOLERATING SETTINGS WELL. BLOODY SECRETIONS NOTED BOTH IN TRACH AND MOUTH. NO SIGNS OR SYMPTOMS OF RESPIRATORY DISTRESS OR ACUTE PAIN NOTED. PITTING EDEMA NOTED ON ALL EXTREMITIES WELL WEEPING. TURNED Q 2HR SUCTIONED NEEDED. ORAL CARE AND TRACH CARE DONE. KAPOOR CATH DRAINING MINIMAL DARK COLORED URINE. SAFETY AND ASPIRATION PRECAUTIONS IN PLACE BED LOCKED AND IN LOW POSITION HOB >30 DEGREES.SIDE RAILS X2 MONITORED APPROPRIATELY THROUGHOUT SHIFT
--- NOTE | 2019-03-03 19:15 | NUR ---
REPORT ENDORSED TO NOC SHIFT
--- NOTE | 2019-03-03 19:30 | NUR ---
BROADCAST FIELD SUPERVISOR NOTES PATIENT IN BED, OBTUNDED, UNABLE TO VERBALIZED NEEDS, ON MECHANICAL VENTILATOR TOLERATING SETTINGS WELL, BLOODY SECRETIONS NOTED BOTH IN TRACH AND MOUTH, SUCTIONED AT THIS TIMEW, NO SIGNS OR SYMPTOMS OF RESPIRATORY DISTRESS OR ACUTE PAIN NOTED. PITTING EDEMA NOTED ON ALL EXTREMITIES WELL WEEPING. TURNED Q 2HR SUCTIONED NEEDED. ORAL CARE AND TRACH CARE DONE. KAPOOR CATH DRAINING MINIMAL DARK COLORED URINE. SAFETY AND ASPIRATION PRECAUTIONS IN PLACE BED LOCKED AND IN LOW POSITION HOB >30 DEGREES.SIDE RAILS X2 MONITORED APPROPRIATELY THROUGHOUT SHIFT Addendum: 03/03/19 at 2009 by TARA CHARLTON RN WRONG ENTRY
--- NOTE | 2019-03-03 19:30 | NUR ---
APPLICATIONS PROJECT MANAGER NOTES NO SIGNIFICANT CHANGES NOTED THROUGHOUT THE SHIFT.PATIENT REMAINS OBTUNDED ON VENT TOLERATING SETTINGS WELL, BLOODY SECRETIONS NOTED BOTH IN TRACH AND MOUTH, O2 SAT LEVEL NOTED 94% AT THIS TIME, NO SOB/ACUTE RESPIRATORY DISTRESS OR PAIN OR DISCOMFORT NOTED, NOTED WITH GENERALIZED EDEMA, WEEPING NOTED ALSO, ALL NEEDS PROVIDED, WELL REPOSITIONED AT THIS TIME, KAPOOR CATH DRAINING MINIMAL DARK COLORED URINE BY GRAVITY, PATENCY INTACT, SAFETY AND ASPIRATION PRECAUTIONS OBSERVED, BED LOCKED AND IN LOW POSITION, HOB ELEVATED AT ALL TIMES, BED SIDE RAILS X2, WILL CONTINUE TO MONITOR CLOSELY.
[2019-03-03 20:00] VITALS: BP 126/73
--- NOTE | 2019-03-03 20:27 | NUR ---
RECEIVED PT TRACHED PTX 7 ON VENT. TOLERATING VENT SETTINGS. SX'D FOR MOD AMT OF FROTHY TINGED SECRETIONS. TRACH SECURE, CUFF DRAMATIC AGENT. VENT ALARMS SET AND AUDIBLE. AMBU BAG AT BEDSIDE. WILL CONTINUE TO MONITOR. Addendum: 03/03/19 at 2027 by JUANA BRANHAM RT Amended: Links added.
[2019-03-04] VITALS: BP_SYST 126; BP_SYST 150; BP_DIAS 74; BP_DIAS 75
[2019-03-04] MEDS: BLOOD SUGAR DIAGNOSTIC 1 EACH STRIP IN SCH ×4 (00:56→17:37)
[2019-03-04 04:00] VITALS: BP 124/78
[2019-03-04] MEDS: GLUCERNA 1.2 1,000 ML BOTTLE NG PRN (05:59)
--- NOTE | 2019-03-04 06:26 | NUR ---
CORRESPONDENCE SPECIALIST NOTES, PATIENT IN BED, OBTUNDED, UNABLE TO VERBALIZED NEEDS, ON MECHANICAL VENTILATOR TOLERATING SETTINGS WELL, BLOODY SECRETIONS NOTED BOTH IN TRACH AND MOUTH, SUCTIONED AT THIS TIME, NO SIGNS OR SYMPTOMS OF RESPIRATORY DISTRESS OR ACUTE PAIN NOTED, EDEMATOUS, TURNED Q 2HR SUCTIONED NEEDED. ORAL CARE AND TRACH CARE DONE, KAPOOR CATH DRAINING MINIMAL DARK COLORED URINE, SAFETY AND ASPIRATION PRECAUTIONS IN PLACE BED LOCKED AND IN LOW POSITION, HOB ELEVATED AT ALL TIMES, WILL ENDORSE CONTINUITY OF CARE TO ONCOMING NURSE.
--- NOTE | 2019-03-04 07:30 | NUR ---
AIR BRAKE TESTER INITIAL NOTES RECEIVED PT IN BED, OBTUNDED. ON TELE JUNCTIONAL RHYTHM; INVERTED PWAVES. F/C DRAINING MINIMAL URINE. PT WEEPING FLUIDS. PICCLINE/MIDLINE FLUSHING WITH NO BLOOD RETURN. PER LAB, NOT ABLE TO DRAW BLOOD FOR LABS D/T PATIENT BEING EDEMATOUS. PT AFEBREILE, TOLERATING VENT SETTINGS. NO S/SX OF DISTRESS. BED IN LOCKED/LOWEST POSITION. CALL LIGHT IN REACH.
[2019-03-04 08:00] VITALS: BP 140/73
[2019-03-04] MEDS ORDERED: ALBUMIN 25% 12.5 GM/50 ML BOTTLE IV ONE (09:00)
[2019-03-04 09:22] LABS: BASOPHILS % (AUTO) 0.2 % (0.0-2.0); EOSINOPHILS % (AUTO) 0.7 % (0.0-6.0); HEMATOCRIT 28 % (33-45); HEMOGLOBIN 9.1 g/dL (11.5-14.8); LYMPHOCYTES # (AUTO) 0.8 /CMM (0.8-4.8); LYMPHOCYTES % (AUTO) 7.6 % (20.0-44.0); MEAN CORPUSCULAR HGB CONC 33 g/dl (31.0-36.0); MEAN CORPUSCULAR VOLUME 94 fL (82-100); MONOCYTES # (AUTO) 1.1 /CMM (0.1-1.30); MONOCYTES % (AUTO) 10.6 % (2.0-12.0); NEUTROPHILS # (AUTO) 8.1 /CMM (1.8-8.9); NEUTROPHILS % (AUTO) 80.9 % (43.0-81.0); PLATELET COUNT (AUTO) 62 /CMM (150-450); RED BLOOD CELL COUNT(AUTO) 2.97 MIL/uL (4.0-5.2)
[2019-03-04 09:27] LABS: CALCIUM, SERUM 8.7 mg/dL (8.5-10.1); CARBON DIOXIDE 26 mmol/L (21-32); CHLORIDE 96 mmol/L (98-107); CREATININE 1.3 mg/dL (0.6-1.3); GLUCOSE 94 mg/dL (74-106); POTASSIUM 5.1 mmol/L (3.5-5.1); SODIUM SERUM 129 mmol/L (136-145); UREA NITROGEN, BLOOD 39 mg/dL (7-18)
[2019-03-04 09:29] LABS: SERUM AMMONIA 135 umol/L (11-32)
[2019-03-04] MEDS ORDERED: ALBUMIN 25% 12.5 GM in PREMIX 1 EA IV ONE (09:30)
--- NOTE | 2019-03-04 09:33 | NUR ---
OUTREACH PROFESSIONAL NOTES PER DR TORRES, NOTIFY RT TO CHANGE FIO2 TO 40%.
--- NOTE | 2019-03-04 09:33 | NUR ---
MECHANOTHERAPIST NOTES PER DR NAVARRETE, ORDER GENTAMICIN OINTMENT FOR CONJUNCTIVITIS.
--- NOTE | 2019-03-04 09:39 | NUR ---
STUDIO TECHNICIAN VIDEO OPERATOR NOTES LAB CALLED CRITICAL LAB 2.2 LACTIC ACID. WILL NOTIFY .
[2019-03-04 09:43] LABS: BAND % (MANUAL) 3 % (0.0-5.0); LYMPHOCYTES % (MANUAL) 11 % (16-48); MONOCYTES % (MANUAL) 10 % (0-11.0); NEUTROPHILS % (MANUAL) 76 (42-76)
[2019-03-04] MEDS: CHLORHEXIDINE GLUCONATE 15 ML UDC MM SCH ×2 (09:43→20:45)
[2019-03-04] MEDS: LACTULOSE 10 G/15 ML UDC (PYXIS) GT SCH ×3 (09:44→17:12)
[2019-03-04] MEDS: ASCORBIC ACID 500 MG TABLET GT SCH (09:44)
[2019-03-04] MEDS: FERROUS SULFATE UDC 300 MG/5 ML UDC GT SCH ×2 (09:44→17:12)
[2019-03-04] MEDS: SULFAMETH/TRIMETH 800/160 MG 1 UDTAB TABLET PO SCH ×2 (09:44→17:12)
[2019-03-04] MEDS: FOLIC ACID 1 MG TABLET GT SCH (09:45)
[2019-03-04] MEDS: FAMOTIDINE (20 MG) 20 MG TABLET GT SCH ×2 (09:46→17:12)
[2019-03-04] MEDS: acetaZOLAMIDE 250 MG TABLET GT SCH (09:46)
[2019-03-04] MEDS: LACTOBACILLUS RHAMNOSUS GG 1 EACH CAP.SPRINK PO SCH ×2 (09:46→17:12)
[2019-03-04] MEDS: MULTIPLE VIT (LYCOPENE/FA/MV,CA,IRON,MIN/LUT)1 TAB GT SCH (09:47)
[2019-03-04] MEDS: MIDODRINE HCL (5MG) 5 MG TABLET GT SCH ×3 (09:47→17:13)
[2019-03-04] MEDS: RIFAXIMIN 550 MG TABLET GT SCH ×2 (09:47→17:13)
[2019-03-04] MEDS: BUMETANIDE INJ 0.25 MG/ML VIAL IV SCH ×2 (09:47→17:12)
[2019-03-04] MEDS: ZINC SULFATE 220 MG CAPSULE PO SCH (09:47)
[2019-03-04] MEDS: SODIUM CHLORIDE 1000 MG TABLET.SOL GT SCH ×2 (09:48→17:12)
[2019-03-04] MEDS: MEROPENEM 1 G in IV NS 0.9% 100 ML IV SCH ×2 (09:49→20:49)
[2019-03-04] MEDS: PROSTAT (PYXIS) 30 ML UDC GT SCH (09:56)
--- NOTE | 2019-03-04 11:19 | NUR ---
RT NOTE RECEIVED PT MECHANICALLY VENTILATED VIA PORTEX 7 CUFFED TRACH TUBE. CUFF INFLATED. TRACH TUBE MIDLINE AND SECURE. VENTILATOR SETTINGS PRESCRIBED. ALARMS SET PER PROTOCOL AND AUDIBLE. VENT PLUGGED IN TO RED OUTLET. AMBU BAG AT BED SIDE. NO DISTRESS NOTED. MODERATE THIN BLOOD TINGED SECRETIONS FOUND UPON SUCTION. Addendum: 03/04/19 at 1122 by SADIQ OLMEDO RT Amended: Links added.
[2019-03-04 12:00] VITALS: BP 123/74
[2019-03-04] MEDS: BRIMONIDINE TARTRATE OPHT SOLN 5 ML BOTTLE EACHEYE SCH (12:17)
[2019-03-04] MEDS ORDERED: GENTAMICIN OPTH OINT 0.3% 3.5 G TUBE EACHEYE SCH (13:00)
[2019-03-04 16:00] VITALS: BP 128/68
[2019-03-04] MEDS ORDERED: PANTOPRAZOLE 40 MG VIAL IV SCH (17:00)
[2019-03-04] MEDS: ERYTHROMYCIN BASE OPHTH 3.5 GM TUBE EACHEYE SCH ×2 (17:45→20:48)
--- NOTE | 2019-03-04 18:19 | NUR ---
telehealth case manager notes contacted dr archuleta regarding gt leaking/bleeding from nose/mouth. ordered protonix 40mg bid. per pharm, protonix backordered. changed to nexium.
--- NOTE | 2019-03-04 19:21 | NUR ---
ASSEMBLY SUPERVISOR NOTES REPORTED TO BELLA PACHECO FOR KAT. PT STABLE. DR NAVARRETE NOTIFIED OF BLEEDING.
--- NOTE | 2019-03-04 19:35 | NUR ---
TOW BAR DRIVER NOTES, PATIENT IN BED, OBTUNDED, UNABLE TO VERBALIZED NEEDS, ON MECHANICAL VENTILATOR TOLERATING SETTINGS WELL, BLOODY SECRETIONS NOTED BOTH IN TRACH AND MOUTH, SUCTIONED AT THIS TIME, NO SIGNS OR SYMPTOMS OF RESPIRATORY DISTRESS OR ACUTE PAIN NOTED, NO FACIAL GRIMACING NOTED AT THIS TIME, PATIENT CONTINUE WITH WHIPPING EDEMA TURNED Q 2HR SUCTIONED NEEDED, GT IN PLACED WITH GTF INFUSING WELL AND PATIENT TOLERATED WELL, KAPOOR CATH DRAINING MINIMAL DARK COLORED URINE, SAFETY AND ASPIRATION PRECAUTIONS IN PLACE, BED LOCKED AND IN LOW POSITION, HOB ELEVATED AT ALL TIMES, WILL CONTINUE TO MONITOR CLOSELY.
[2019-03-04 20:00] VITALS: BP 120/68
--- NOTE | 2019-03-04 20:27 | NUR ---
RECEIVED PT TRACHED PTX 7 ON VENT. PT TOLERATING SETTINGS. TRACH SECURE, CUFF CHURN DRILLER HELPER. SX'D FOR MOD AMT OF DARK RED SECRETIONS. NOTIFIED RN ABOUT THE SECRETIONS. RN AWARE AND MD. VENT ALARMS SET AND AUDIBLE. TIFFANI STREETER AT BESIDE. WILL CONTINUE TO MONITOR. Addendum: 03/04/19 at 2029 by JUANA BRANHAM RT Amended: Links added.
[2019-03-05] VITALS: BP 150/75
[2019-03-05] MEDS: BLOOD SUGAR DIAGNOSTIC 1 EACH STRIP IN SCH ×4 (00:06→17:48)
[2019-03-05 04:00] VITALS: BP 128/80
[2019-03-05] MEDS: GLUCERNA 1.2 1,000 ML BOTTLE NG PRN (05:51)
[2019-03-05 06:34] LABS: BASOPHILS % (AUTO) 0.1 % (0.0-2.0); EOSINOPHILS % (AUTO) 0.8 % (0.0-6.0); HEMATOCRIT 25 % (33-45); HEMOGLOBIN 8.9 g/dL (11.5-14.8); LYMPHOCYTES # (AUTO) 0.7 /CMM (0.8-4.8); LYMPHOCYTES % (AUTO) 6.8 % (20.0-44.0); MEAN CORPUSCULAR HGB CONC 35 g/dl (31.0-36.0); MEAN CORPUSCULAR VOLUME 93 fL (82-100); MONOCYTES # (AUTO) 1.1 /CMM (0.1-1.30); MONOCYTES % (AUTO) 10.9 % (2.0-12.0); NEUTROPHILS # (AUTO) 7.9 /CMM (1.8-8.9); NEUTROPHILS % (AUTO) 81.4 % (43.0-81.0); PLATELET COUNT (AUTO) 57 /CMM (150-450); RED BLOOD CELL COUNT(AUTO) 2.72 MIL/uL (4.0-5.2); WHITE BLOOD COUNT (AUTO) 9.7 K/uL (4.3-11.0)
--- NOTE | 2019-03-05 06:35 | NUR ---
RN NOTES, PATIENT IN BED, OBTUNDED, UNABLE TO VERBALIZED NEEDS, ON MECHANICAL VENTILATOR TOLERATING SETTINGS WELL, PATIENT CONTINUE WITH BLOODY SECRETIONS NOTED BOTH IN TRACH AND MOUTH, SUCTIONED NEEDED, NO SIGNS OR SYMPTOMS OF RESPIRATORY DISTRESS OR ACUTE PAIN NOTED, WITH STABLE VS, NO FACIAL GRIMACING NOTED AT THIS TIME, PATIENT CONTINUE WITH EXCESSIVE WHIPPING EDEMA, REPOSITIONED Q2HRS AND PRN, GT IN PLACED WITH GTF INFUSING WELL AND PATIENT TOLERATED WELL, KAPOOR CATH DRAINING MINIMAL DARK COLORED URINE, SAFETY AND ASPIRATION PRECAUTIONS IN PLACE, BED LOCKED AND IN LOW POSITION, HOB ELEVATED AT ALL TIMES, PATIENT CONTINUE WITH DETERIORATED STATE OF CONDITION, NO SIGNIFICANT BENDING ROLL OPERATOR NIGHT, WILL ENDORSE CONTINUITY OF CARE TO ONCOMING NURSE.
[2019-03-05 06:38] LABS: CARBON DIOXIDE 28 mmol/L (21-32); CHLORIDE 99 mmol/L (98-107); CREATININE 1.4 mg/dL (0.6-1.3); GLUCOSE 91 mg/dL (74-106); POTASSIUM 4.9 mmol/L (3.5-5.1); SODIUM SERUM 133 mmol/L (136-145); UREA NITROGEN, BLOOD 45 mg/dL (7-18)
[2019-03-05 06:42] LABS: CALCIUM, SERUM 8.6 mg/dL (8.5-10.1)
[2019-03-05 07:02] LABS: BAND % (MANUAL) 14 % (0.0-5.0); NEUTROPHILS % (MANUAL) 75 (42-76)
[2019-03-05 07:03] LABS: LYMPHOCYTES % (MANUAL) 5 % (16-48); MONOCYTES % (MANUAL) 6 % (0-11.0)
[2019-03-05 07:36] LABS: SERUM AMMONIA 185 umol/L (11-32)
[2019-03-05 08:00] VITALS: BP 135/81
--- NOTE | 2019-03-05 08:00 | NUR ---
TELE1/RN AM SHIFT INITIAL NOTES RECEIVED PT ASLEEP IN BED, PT IS OBTUNDED, OPEN EYES WITH A LOT OF WHITE MATTER DISCHARGES. NO ACUTE DISTRESS OR GRIMACING NOTED, NO ACUTE CHANGE OF CONDITION. VENT DEPENDENT, RATES SET PRESCRIBED, SATURATING @ 98% , LUNG SOUNDS DIMINISHED, RESPIRATIONS EVEN AND UNLABORED. SUCTIONED FOR AIRWAY CLEARANCE. ON TELE MONITORING, WITH ACCELERATED JUNCTIONAL RHYTHM, HR 94 . IVS SITE FLUSHED, PATENT WITH NO S/S OF INFECTION, POSITIVE BLOOD RETURN ON PICC LINE, SL. PT NOTED WITH GENERALIZED ANASARCA WEEPING ON LOWER ARMS AND LEGS. ON GOING GT FEEDING @ 40CC/HR (GOAL: 65CC/HR), NO GASTRIC RESIDUAL NOTED, FLUSHED PATENT. KAPOOR CATHETER INTACT WITH MARÍA COLORED URINE OUTPUT. . PT IS COMFORTABLE, SCHEDULED AM MEDS TO BE GIVEN. CL WITHIN REACHED AND SAFETY MAINTAINED. ON GOING MONITORING.
[2019-03-05] MEDS ORDERED: HYDROGEL DRESSING 90 GM TUBE TP PRN (08:30)
[2019-03-05] MEDS: ERYTHROMYCIN BASE OPHTH 3.5 GM TUBE EACHEYE SCH ×2 (09:26→20:03)
[2019-03-05] MEDS: BRIMONIDINE TARTRATE OPHT SOLN 5 ML BOTTLE EACHEYE SCH (09:26)
[2019-03-05] MEDS: HYDROGEL DRESSING 90 GM TUBE TP SCH (09:27)
[2019-03-05] MEDS: NEXIUM 40 MG VIAL IV SCH ×2 (09:28→17:43)
[2019-03-05] MEDS: CHLORHEXIDINE GLUCONATE 15 ML UDC MM SCH ×2 (09:28→20:04)
[2019-03-05] MEDS: PROSTAT (PYXIS) 30 ML UDC GT SCH (09:29)
[2019-03-05] MEDS: LACTULOSE 10 G/15 ML UDC (PYXIS) GT SCH ×3 (09:30→17:44)
[2019-03-05] MEDS: BUMETANIDE INJ 0.25 MG/ML VIAL IV SCH ×2 (09:30→17:44)
[2019-03-05] MEDS: FAMOTIDINE (20 MG) 20 MG TABLET GT SCH ×2 (09:30→17:44)
[2019-03-05] MEDS: FERROUS SULFATE UDC 300 MG/5 ML UDC GT SCH ×2 (09:30→17:44)
[2019-03-05] MEDS: MULTIPLE VIT (LYCOPENE/FA/MV,CA,IRON,MIN/LUT)1 TAB GT SCH (09:30)
[2019-03-05] MEDS: ASCORBIC ACID 500 MG TABLET GT SCH (09:31)
[2019-03-05] MEDS: SULFAMETH/TRIMETH 800/160 MG 1 UDTAB TABLET PO SCH ×2 (09:31→17:44)
[2019-03-05] MEDS: FLUCONAZOLE (100 MG) 100 MG TABLET GT SCH (09:31)
[2019-03-05] MEDS: SODIUM CHLORIDE 1000 MG TABLET.SOL GT SCH ×2 (09:31→17:44)
[2019-03-05] MEDS: LACTOBACILLUS RHAMNOSUS GG 1 EACH CAP.SPRINK PO SCH ×2 (09:31→17:45)
[2019-03-05] MEDS: RIFAXIMIN 550 MG TABLET GT SCH ×2 (09:31→17:45)
[2019-03-05] MEDS: ZINC SULFATE 220 MG CAPSULE PO SCH (09:32)
[2019-03-05] MEDS: FOLIC ACID 1 MG TABLET GT SCH (09:32)
[2019-03-05] MEDS: MIDODRINE HCL (5MG) 5 MG TABLET GT SCH ×3 (09:32→17:44)
[2019-03-05] MEDS: acetaZOLAMIDE 250 MG TABLET GT SCH (09:32)
--- NOTE | 2019-03-05 10:07 | NUR ---
WOUND CARE CONSULT WOUND CARE RECEIVED CONSULT FOR MULTIPLE WOUNDS. WOUND CARE WILL DEFER CONSULT AND TREATMENT PLANS TO PLASTIC SURGICAL TEAM INCLUDING DPGallito LYNN. PATIENT WITH RITESH AT 9, ALL PRESSURE ULCER PREVENTION MEASURES ARE NOTED TO BE IN PLACE AT THIS TIME. WILL SEE PRN.
[2019-03-05 12:00] VITALS: BP 101/68
--- NOTE | 2019-03-05 12:00 | NUR ---
TELE1/RN NOON ROUNDS PT SUCTIONED AND REPOSITIONED, NO CHANGE OF CONDITION. MONITORING CONTINUED.
[2019-03-05] MEDS ORDERED: LACTULOSE 10 G/15 ML UDC (PYXIS) PO PRN (14:00)
[2019-03-05 16:00] VITALS: BP 114/73
--- NOTE | 2019-03-05 17:18 | NUR ---
RT NOTE, PT. 73 Y OLD FEMALE REC. 0700 AM TRACH'D PORTX # 7 ON MECHANICAL VENT. WITH NOTED SETTINGS. ALARMS ARE SET AND FUNCTIONAL. VENT PLUGGED INTO RED OUT LET, AMBU BAG AT THE BEDSIDE, EQUAL CHEST RISE NOTED. HME CHANGED, MARITIME PILOT DONE. NO CHANGES B/S BILATERALLY RHONCHI/RALES AND SUX'D FOR LARGE AMT OF BROWN/REDDISH SECRETIONS, PT. REMAIN STABLE. REPORT WILL PASS TO PM SHIFT. Addendum: 03/05/19 at 1719 by KATE BELTRAN RT Amended: Links added.
--- NOTE | 2019-03-05 17:30 | NUR ---
TELE1/RN AFTERNOON ROUNDS PM CARE PROVIDED, NO CHANGE OF CONDITION.
--- NOTE | 2019-03-05 19:30 | NUR ---
TELE1/RN AM SHIFT END NOTES ALL NEEDS MET, PT NOTED WITH NO ACUTE CHANGE OF CONDITION DURING THE SHIFT. PT ENDORSED TO PM NURSE TO CONTINUE CARE. CL WITHIN REACHED AND SAFETY MAINTAINED.
[2019-03-05 20:00] VITALS: BP 118/64
--- NOTE | 2019-03-05 20:00 | NUR ---
RESIDENTIAL INTERIOR DESIGNER - NOTES - RECEIVED PT ASLEEP IN BED, PT IS OBTUNDED, OPEN EYES WITH A LOT OF WHITE/YELLOW EYE DISCHARGE. NO ACUTE DISTRESS OR GRIMACING NOTED, NO ACUTE CHANGE OF CONDITION. VENT DEPENDENT, RATES SET PRESCRIBED, SATURATING @ 100% , LUNG SOUNDS DIMINISHED, RESPIRATIONS EVEN AND UNLABORED. SUCTIONED FOR AIRWAY CLEARANCE. ON TELE MONITORING, WITH ACCELERATED JUNCTIONAL RHYTHM, HR 94 . MILLA PICC FLUSHED, PATENT WITH NO S/S OF INFECTION, POSITIVE BLOOD RETURN. PT NOTED WITH GENERALIZED ANASARCA WEEPING ON LOWER ARMS AND LEGS. ON GOING GT FEEDING @ 40CC/HR (GOAL: 65CC/HR), NO GASTRIC RESIDUAL NOTED, FLUSHED PATENT. KAPOOR CATHETER INTACT WITH MARAÍ COLORED URINE OUTPUT. . PT IS COMFORTABLE, SCHEDULED AM MEDS TO BE GIVEN. CL WITHIN REACHED AND SAFETY MAINTAINED. ON GOING MONITORING.
--- NOTE | 2019-03-05 20:42 | NUR ---
RECEIVED PT TRACHED PTX 7 ON VENT. PT TOLERATING SETTINGS. TRACH SECURE, CUFF QUALITY IMPROVEMENT COORDINATOR. SX'D FOR MOD AMT OF TINGED SECRETIONS. VENT ALARMS SET AND AUDIBLE. TIFFANI STREETER AT BESIDE. WILL CONTINUE TO MONITOR. Addendum: 03/05/19 at 2042 by JUANA BRANHAM RT Amended: Links added.
[2019-03-06] VITALS: BP 128/64
[2019-03-06] MEDS: BLOOD SUGAR DIAGNOSTIC 1 EACH STRIP IN SCH ×4 (00:08→17:59)
[2019-03-06 04:00] VITALS: BP 125/58
[2019-03-06 07:22] LABS: BASOPHILS % (AUTO) 0.1 % (0.0-2.0); EOSINOPHILS % (AUTO) 0.9 % (0.0-6.0); HEMATOCRIT 26 % (33-45); HEMOGLOBIN 8.7 g/dL (11.5-14.8); LYMPHOCYTES # (AUTO) 0.8 /CMM (0.8-4.8); LYMPHOCYTES % (AUTO) 7.7 % (20.0-44.0); MEAN CORPUSCULAR HGB CONC 33 g/dl (31.0-36.0); MEAN CORPUSCULAR VOLUME 95 fL (82-100); MONOCYTES # (AUTO) 1.3 /CMM (0.1-1.30); MONOCYTES % (AUTO) 13.2 % (2.0-12.0); NEUTROPHILS # (AUTO) 7.9 /CMM (1.8-8.9); NEUTROPHILS % (AUTO) 78.1 % (43.0-81.0); RED BLOOD CELL COUNT(AUTO) 2.75 MIL/uL (4.0-5.2); WHITE BLOOD COUNT (AUTO) 10.1 K/uL (4.3-11.0)
[2019-03-06 07:27] LABS: ALANINE AMINOTRANSFERASE 31 U/L (12-78); ALBUMIN 1.8 g/dL (3.4-5.0); ALKALINE PHOSPHATASE 261 U/L (46-116); ASPARTATE AMINOTRANSFERASE 40 U/L (15-37); BILIRUBIN,TOTAL 1.2 mg/dL (0.2-1.0); CALCIUM, SERUM 8.9 mg/dL (8.5-10.1); CARBON DIOXIDE 26 mmol/L (21-32); CHLORIDE 99 mmol/L (98-107); CREATININE 1.8 mg/dL (0.6-1.3); GLUCOSE 88 mg/dL (74-106); POTASSIUM 4.3 mmol/L (3.5-5.1); SODIUM SERUM 132 mmol/L (136-145); UREA NITROGEN, BLOOD 51 mg/dL (7-18)
[2019-03-06 07:31] LABS: PLATELET COUNT (AUTO) 48 /CMM (150-450)
[2019-03-06 07:49] LABS: SERUM AMMONIA 167 umol/L (11-32)
[2019-03-06 08:00] VITALS: BP 113/63
--- NOTE | 2019-03-06 08:00 | NUR ---
TELE1/RN AM SHIFT INITIAL NOTES RECEIVED PT ASLEEP IN BED, PT IS OBTUNDED, EYES CLOSED AT THIS TIME. NO ACUTE DISTRESS OR GRIMACING NOTED, NO ACUTE CHANGE OF CONDITION. VENT DEPENDENT, RATES SET PRESCRIBED, SATURATING @ 95% , LUNG SOUNDS DIMINISHED, RESPIRATIONS EVEN AND UNLABORED. SUCTIONED FOR AIRWAY CLEARANCE. ON TELE MONITORING, WITH ACCELERATED JUNCTIONAL RHYTHM, HR 95 . PICC LINE PATENT WITH NO S/S OF INFECTION, POSITIVE BLOOD RETURN, SL. PT NOTED WITH GENERALIZED ANASARCA WEEPING ON LOWER ARMS AND LEGS. ON GOING GT FEEDING @ 65CC/HR, NO GASTRIC RESIDUAL NOTED, FLUSHED PATENT. KAPOOR CATHETER INTACT WITH MARÍA COLORED URINE OUTPUT. PT IS COMFORTABLE, SCHEDULED AM MEDS TO BE GIVEN. CL WITHIN REACHED AND SAFETY MAINTAINED. ON GOING MONITORING.
[2019-03-06] MEDS: BRIMONIDINE TARTRATE OPHT SOLN 5 ML BOTTLE EACHEYE SCH (08:48)
[2019-03-06] MEDS: ERYTHROMYCIN BASE OPHTH 3.5 GM TUBE EACHEYE SCH ×2 (08:48→21:03)
[2019-03-06] MEDS: MIDODRINE HCL (5MG) 5 MG TABLET GT SCH ×3 (08:49→17:46)
[2019-03-06] MEDS: PROSTAT (PYXIS) 30 ML UDC GT SCH (08:49)
[2019-03-06] MEDS: LACTOBACILLUS RHAMNOSUS GG 1 EACH CAP.SPRINK PO SCH ×2 (08:50→17:45)
[2019-03-06] MEDS: SULFAMETH/TRIMETH 800/160 MG 1 UDTAB TABLET PO SCH ×2 (08:50→17:46)
[2019-03-06] MEDS: ASCORBIC ACID 500 MG TABLET GT SCH (08:50)
[2019-03-06] MEDS: FLUCONAZOLE (100 MG) 100 MG TABLET GT SCH (08:50)
[2019-03-06] MEDS: ZINC SULFATE 220 MG CAPSULE PO SCH (08:50)
[2019-03-06] MEDS: RIFAXIMIN 550 MG TABLET GT SCH ×2 (08:50→17:46)
[2019-03-06] MEDS: FOLIC ACID 1 MG TABLET GT SCH (08:50)
[2019-03-06] MEDS: acetaZOLAMIDE 250 MG TABLET GT SCH (08:50)
[2019-03-06] MEDS: MULTIPLE VIT (LYCOPENE/FA/MV,CA,IRON,MIN/LUT)1 TAB GT SCH (08:50)
[2019-03-06] MEDS: FAMOTIDINE (20 MG) 20 MG TABLET GT SCH ×2 (08:50→17:45)
[2019-03-06] MEDS: SODIUM CHLORIDE 1000 MG TABLET.SOL GT SCH ×2 (08:50→17:45)
[2019-03-06] MEDS: CHLORHEXIDINE GLUCONATE 15 ML UDC MM SCH ×2 (08:51→21:48)
[2019-03-06] MEDS: HYDROGEL DRESSING 90 GM TUBE TP SCH (08:51)
[2019-03-06] MEDS: BUMETANIDE INJ 0.25 MG/ML VIAL IV SCH ×2 (08:51→17:45)
[2019-03-06] MEDS: LACTULOSE 10 G/15 ML UDC (PYXIS) GT SCH ×3 (08:51→17:45)
[2019-03-06] MEDS: FERROUS SULFATE UDC 300 MG/5 ML UDC GT SCH ×2 (08:51→17:46)
[2019-03-06] MEDS: NEXIUM 40 MG VIAL IV SCH ×2 (08:52→17:44)
[2019-03-06] MEDS: METOLAZONE 2.5 MG TABLET GT SCH (08:55)
[2019-03-06 09:11] LABS: LYMPHOCYTES % (MANUAL) 5 % (16-48); MONOCYTES % (MANUAL) 11 % (0-11.0); NEUTROPHILS % (MANUAL) 84 (42-76)
[2019-03-06] MEDS: GLUCERNA 1.2 1,000 ML BOTTLE NG PRN (09:18)
[2019-03-06 12:00] VITALS: BP 135/80
--- NOTE | 2019-03-06 12:00 | NUR ---
TELE1/RN NOON ROUNDS PT SUCTIONED AND REPOSITIONED, NO CHANGE OF CONDITION. MONITORING CONTINUED.
[2019-03-06 16:00] VITALS: BP_SYST 121; BP_DIAS 56; BP_DIAS 67
--- NOTE | 2019-03-06 17:00 | NUR ---
TELE1/RN AFTERNOON ROUNDS NO ACUTE CHANGE OF CONDITION. PM CARE PROVIDED.
--- NOTE | 2019-03-06 18:34 | NUR ---
RT TRACH TUBE IN PLACE, PATENT, AND SECURED. VENT ALARMS ON AND AUDIBLE. AMBU BAG AND BACK UP TRACH BY BEDSIDE. VENT PLUGGED IN RED OUTLET. Addendum: 03/06/19 at 1835 by DUANE KAUR RT Amended: Links added.
--- NOTE | 2019-03-06 19:00 | NUR ---
TELE1/RN NOTES RECEIVED PT IN BED, OBTUNDED, EYES CLOSED AT THIS TIME. NO S/S OF ACUTE DISTRESS NOTED. RESPIRATION EVEN AND UNLABORED. NO SOB NOTED. NO S/S OF PAIN OR DISCOMFORT NOTED. TRACH INTACT PATENT, CONNECTED TO VENT WITH PRESCRIBED SETTINGS, SATURATING 98% , LUNG SOUNDS RHONCHI, SUCTIONED FOR AIRWAY CLEARANCE. ON TELE MONITORING. PICC LINE PATENT WITH NO S/S OF INFECTION AT THE SITE. POSITIVE BLOOD RETURN. PT NOTED WITH GENERALIZED ANASARCA WEEPING ON LOWER ARMS AND LEGS. G TUBE IN PLACE, PATENT. NO RESIDUAL NOTED. ON GOING FEEDING ORDERED. KAPOOR CATHETER IN PLACE, INTACT, DRAINING WELL WITH MARÍA COLORED URINE. PT IS COMFORTABLE. CL WITHIN REACHED AND SAFETY MAINTAINED. WILL CONTINUE TO MONITOR PER PLAN OF CARE.
--- NOTE | 2019-03-06 19:45 | NUR ---
TELE1/RN AM SHIFT END NOTES ALL NEEDS MET. NO ACUTE CHANGE OF CONDITION DURING THE SHIFT. PT ENDORSED TO PM NURSE TO CONTINUE CARE. CL WITHIN REACHED AND SAFETY MAINTAINED.
[2019-03-06 20:00] VITALS: BP 96/46
--- NOTE | 2019-03-06 23:05 | NUR ---
RT NOTE PT REC'D TRACHED ON [facility] VENT VIA PORTEX SZ 7 ON MECH VENT ON AC MODE. NO RESP DISTRESS OR SOB NOTED. DIRECTOR INSTRUMENTATION CUFF PRESSURE NOTED TRACH PATENT AND SECURED. SX'D FOR MOD AMT OF THICK BLOOD TINGED SECRETIONS. ALARMS ARE SET AND AUDIBLE. VENT PLUGGED INTO RED OUTLET. AMBU BAG BEDSIDE. WILL CONTINUE TO MONITOR CLOSELY. Addendum: 03/06/19 at 2308 by ILANA GREENBERG RT Amended: Links added.
[2019-03-07] VITALS: BP 122/47
[2019-03-07 04:00] VITALS: BP 125/58
[2019-03-07] MEDS: BLOOD SUGAR DIAGNOSTIC 1 EACH STRIP IN SCH ×4 (05:50→17:21)
--- NOTE | 2019-03-07 06:34 | NUR ---
TELE/RN NOTES PATIENT IN NO DISTRESS. KEPT PATIENT CLEAN AND DRY. GOOD INCONTINENT CARE RENDERED. ALL NEED METS. ALL DUE MEDS GIVEN ORDERED. NO S/S OF PAIN OR DISCOMFORT NOTED. SAFETY MAINTAINED. CALL LIGHT WITHIN REACH. WILL ENDORSE TO AM NURSE FOR CONTINUITY OF CARE
[2019-03-07 07:01] LABS: BASOPHILS % (AUTO) 0.2 % (0.0-2.0); EOSINOPHILS % (AUTO) 1.1 % (0.0-6.0); HEMATOCRIT 26 % (33-45); HEMOGLOBIN 8.5 g/dL (11.5-14.8); LYMPHOCYTES # (AUTO) 0.8 /CMM (0.8-4.8); LYMPHOCYTES % (AUTO) 7.9 % (20.0-44.0); MEAN CORPUSCULAR HGB CONC 33 g/dl (31.0-36.0); MEAN CORPUSCULAR VOLUME 96 fL (82-100); MONOCYTES # (AUTO) 1.4 /CMM (0.1-1.30); MONOCYTES % (AUTO) 14.2 % (2.0-12.0); NEUTROPHILS # (AUTO) 7.3 /CMM (1.8-8.9); NEUTROPHILS % (AUTO) 76.6 % (43.0-81.0); WHITE BLOOD COUNT (AUTO) 9.5 K/uL (4.3-11.0)
--- NOTE | 2019-03-07 07:05 | NUR ---
TELE/RN NOTES LAB CALLED THIS TIME REGARDING PATIENT CRITICAL LOW PLATELET LEVELS 42. AM SHIFT NURSE MADE AWARE. SHE SAID, WILL FOLLOW UP WITH DOCTOR.
[2019-03-07 07:06] LABS: PLATELET COUNT (AUTO) 42 /CMM (150-450)
[2019-03-07 07:18] LABS: ALANINE AMINOTRANSFERASE 32 U/L (12-78); ALBUMIN 1.7 g/dL (3.4-5.0); ALKALINE PHOSPHATASE 285 U/L (46-116); ASPARTATE AMINOTRANSFERASE 38 U/L (15-37); BILIRUBIN,TOTAL 0.9 mg/dL (0.2-1.0); CALCIUM, SERUM 8.9 mg/dL (8.5-10.1); CARBON DIOXIDE 26 mmol/L (21-32); CHLORIDE 101 mmol/L (98-107); CREATININE 1.9 mg/dL (0.6-1.3); GLUCOSE 93 mg/dL (74-106); POTASSIUM 3.8 mmol/L (3.5-5.1); SODIUM SERUM 135 mmol/L (136-145); TOTAL PROTEIN, SERUM 5.8 g/dL (6.4-8.2); UREA NITROGEN, BLOOD 57 mg/dL (7-18)
[2019-03-07 07:29] LABS: SERUM AMMONIA 101 umol/L (11-32)
--- NOTE | 2019-03-07 07:35 | NUR ---
SENIOR ELECTRICAL PROJECT MANAGER OPENING NOTES RECEIVED BEDSIDE REPORT PATIENT OBTUNDED ON VENT TOLERATING SETTINGS WELL. NO SIGNS OR SYMPTOMS OF RESPIRATORY DISTRESS OR ACUTE PAIN. ANASARCA PRESENT , WEEPING ON ALL EXTREMITIES KAPOOR CATH IN PLACE DRAINING MINIMAL DARK YELLOW URINE. GTF RUNNING @ 50 ML/HR TOLERATING WELL NO N/V/D NO RESIDUAL. MILLA PICC IN PLACE.SAFETY AND ASPIRATION PRECAUTIONS IN PLACE BED IN LOW POSITION HOB >30 DEGREES. ARMS ELEVATED. WILL CONT TO MONITOR ACCORDINGLY
[2019-03-07 08:00] VITALS: BP 114/60
[2019-03-07 08:43] LABS: BAND % (MANUAL) 1 % (0.0-5.0); LYMPHOCYTES % (MANUAL) 6 % (16-48); MONOCYTES % (MANUAL) 8 % (0-11.0); NEUTROPHILS % (MANUAL) 85 (42-76)
--- NOTE | 2019-03-07 09:00 | NUR ---
BEDSIDE ROUNDS DONE WITH DR NAVARRETE. ORDERS FOR PATIENT TO BE D/C BACK TO FACILITY. TRANSFUSE 1 UNIT OF PLATELETS. CALLED SISTER TO GET VERBAL CONSENT AND SHE STATED THE WILL BE IN AT 1200 TODAY 03/07 TO SPEAK WITH DOCTOR IN REGARDS TO PLACING PATIENT ON HOSPICE CARE,
[2019-03-07] MEDS: LACTULOSE 10 G/15 ML UDC (PYXIS) GT SCH ×3 (09:13→17:00)
[2019-03-07] MEDS: CHLORHEXIDINE GLUCONATE 15 ML UDC MM SCH (09:13)
[2019-03-07] MEDS: ASCORBIC ACID 500 MG TABLET GT SCH (09:14)
[2019-03-07] MEDS: FLUCONAZOLE (100 MG) 100 MG TABLET GT SCH (09:14)
[2019-03-07] MEDS: acetaZOLAMIDE 250 MG TABLET GT SCH (09:14)
[2019-03-07] MEDS: LACTOBACILLUS RHAMNOSUS GG 1 EACH CAP.SPRINK PO SCH ×2 (09:14→17:00)
[2019-03-07] MEDS: METOLAZONE 2.5 MG TABLET GT SCH (09:14)
[2019-03-07] MEDS: MULTIPLE VIT (LYCOPENE/FA/MV,CA,IRON,MIN/LUT)1 TAB GT SCH (09:14)
[2019-03-07] MEDS: ZINC SULFATE 220 MG CAPSULE PO SCH (09:15)
[2019-03-07] MEDS: SULFAMETH/TRIMETH 800/160 MG 1 UDTAB TABLET PO SCH ×2 (09:15→17:00)
[2019-03-07] MEDS: BUMETANIDE INJ 0.25 MG/ML VIAL IV SCH ×2 (09:15→17:00)
[2019-03-07] MEDS: FERROUS SULFATE UDC 300 MG/5 ML UDC GT SCH ×2 (09:15→17:00)
[2019-03-07] MEDS: FOLIC ACID 1 MG TABLET GT SCH (09:15)
[2019-03-07] MEDS: SODIUM CHLORIDE 1000 MG TABLET.SOL GT SCH ×2 (09:15→17:00)
[2019-03-07] MEDS: MIDODRINE HCL (5MG) 5 MG TABLET GT SCH ×2 (09:15→17:00)
[2019-03-07] MEDS: FAMOTIDINE (20 MG) 20 MG TABLET GT SCH ×2 (09:15→17:00)
[2019-03-07] MEDS: RIFAXIMIN 550 MG TABLET GT SCH ×2 (09:15→17:00)
[2019-03-07] MEDS: NEXIUM 40 MG VIAL IV SCH ×2 (09:16→17:00)
[2019-03-07] MEDS: ERYTHROMYCIN BASE OPHTH 3.5 GM TUBE EACHEYE SCH (09:21)
[2019-03-07] MEDS: HYDROGEL DRESSING 90 GM TUBE TP SCH (09:22)
[2019-03-07] MEDS: BRIMONIDINE TARTRATE OPHT SOLN 5 ML BOTTLE EACHEYE SCH (09:22)
[2019-03-07] MEDS: PROSTAT (PYXIS) 30 ML UDC GT SCH (09:22)
[2019-03-07] MEDS: GLUCERNA 1.2 1,000 ML BOTTLE NG PRN (09:25)
--- NOTE | 2019-03-07 11:30 | NUR ---
HOSPICE MEETING WITH FAMILY . AWAITING ORDERS IF PATIENT TO BE HOSPICE IN FACILITY OR TRANSFERRED OUT.FAMILY AT BEDSIDE
--- NOTE | 2019-03-07 12:55 | NUR ---
FAMILY REFUSED BLOOD SUGARS
[2019-03-07 16:00] VITALS: BP_SYST 111; BP_SYST 114; BP_DIAS 56; BP_DIAS 60
--- NOTE | 2019-03-07 16:05 | NUR ---
HOSPICE HERE TO EVALUATE PATIENT. ORDERS BEING OBTAINED BY DR VALENCIA. DR NAVARRETE AGREED TO SIGN CERTIFICATE IF PATIENT PASSES TODAY 03/07 IF PATIENT SURVIVES THE EVENING DR EVANS WILL SEE PATIENT IN MORNING
[2019-03-07 17:00] VITALS: BP 111/56
--- NOTE | 2019-03-07 17:23 | NUR ---
ALL MEDS HELD PATIENT ON HOSPICE
== END 2019-03-07 18:22 | disposition hospice, inpatient (51) | DRG 871 ==
LOC: ER 16:55 → ICU 21:10 → TELE-TD 03-02 → TELE1 03-03 07:55 → HOSPICE1 03-07 18:05
PROVIDERS: ADMIT Internal Medicine; ATTEND Internal Medicine
PROC: 5A1945Z Respiratory Ventilation, 24-96 Consecutive Hours (ICD-10-PCS; principal; 2019-03-01)
PROC: 02HV33Z Insertion of Infusion Device into Superior Vena Cava, Percutaneous Approach (ICD-10-PCS; 2019-03-02)
PROC: B548ZZA Ultrasonography of Superior Vena Cava, Guidance (ICD-10-PCS; 2019-03-02)
PROC: 05H533Z Insertion of Infusion Device into Right Subclavian Vein, Percutaneous Approach (ICD-10-PCS; 2019-03-02)
PROC: B546ZZA Ultrasonography of Right Subclavian Vein, Guidance (ICD-10-PCS; 2019-03-02)
DX: A41.9 Sepsis, unspecified organism (principal); L89.154 Pressure ulcer of sacral region, stage 4; J96.21 Acute and chronic respiratory failure with hypoxia; R53.2 Functional quadriplegia; J15.9 Unspecified bacterial pneumonia; E87.1 Hypo-osmolality and hyponatremia; B37.49 Other urogenital candidiasis; E87.2 Acidosis; E46 Unspecified protein-calorie malnutrition; G93.49 Other encephalopathy; Z99.11 Dependence on respirator [ventilator] status; I42.9 Cardiomyopathy, unspecified; J98.11 Atelectasis; Z16.12 Extended spectrum beta lactamase (ESBL) resistance; E87.5 Hyperkalemia; D69.6 Thrombocytopenia, unspecified; E78.5 Hyperlipidemia, unspecified; E11.9 Type 2 diabetes mellitus without complications; D64.9 Anemia, unspecified; H10.9 Unspecified conjunctivitis; H40.9 Unspecified glaucoma; Z88.8 Allergy status to other drugs, medicaments and biological substances; Z79.4 Long term (current) use of insulin; Z79.899 Other long term (current) drug therapy; I25.2 Old myocardial infarction; K72.90 Hepatic failure, unspecified without coma; K74.60 Unspecified cirrhosis of liver; K76.0 Fatty (change of) liver, not elsewhere classified; L30.4 Erythema intertrigo; R13.10 Dysphagia, unspecified; Z86.73 Personal history of transient ischemic attack (TIA), and cerebral infarction without residual deficits; K76.89 Other specified diseases of liver; Z93.1 Gastrostomy status; Z93.0 Tracheostomy status; I11.0 Hypertensive heart disease with heart failure; I50.9 Heart failure, unspecified; I71.6 Thoracoabdominal aortic aneurysm, without rupture; J44.9 Chronic obstructive pulmonary disease, unspecified; L89.610 Pressure ulcer of right heel, unstageable; L89.621 Pressure ulcer of left heel, stage 1; S90.424A Blister (nonthermal), right lesser toe(s), initial encounter; X58.XXXA Exposure to other specified factors, initial encounter; Y92.9 Unspecified place or not applicable; I95.89 Other hypotension; L89.320 Pressure ulcer of left buttock, unstageable; L89.310 Pressure ulcer of right buttock, unstageable; L98.9 Disorder of the skin and subcutaneous tissue, unspecified; Z87.891 Personal history of nicotine dependence; Z51.5 Encounter for palliative care; Z86.79 Personal history of other diseases of the circulatory system; I49.9 Cardiac arrhythmia, unspecified
CPT/HCPCS: 31720; 36415; 36569; 71045-TC; 80048-TC; 80053-TC; 80076-TC; 81000-TC; 82140-TC; 82248-TC; 82962-TC; 83605-TC; 83735-TC; 84100-TC; 84484-TC; 85025-TC; 85730-TC; 86850-TC; 87040-TC; 87081-TC; 87086-TC; 93307-TC; 94002-TC; 94003-TC; 94760-TC; 94762-TC; 94799-TC; 99082-TC; A4216; A4623; A6248; A6253; A6403; A7526; C1751; G0378; J1815; J1940; J2185; J3490; J7030; J7060; P9047

== ENCOUNTER 2019-03-07 18:47 | Inpatient (IN) | payer OTHER ==
[~2019-03-07] VITALS: Ht 165.1 cm; Wt 77.1 kg
[~2019-03-07 18:47] MED LIST changes: -ACET-2605 GT; +ACET-73 GT; +ACET250T9 GT; -BISA10SU11 RC; +BISA10SU8 RC; +FLUC200P12 IV; -FLUD0.1T GT; +FURO10SO2 GT; -LACT10SO GT; +LACT10SO PO; -METH1TAB GT; +MIDO10TA GT; -POTA20PA34 GT; -PROP10TA10 GT; +SACC250C GT; +SODI1TAB3 GT; +SULF1TAB48 GT; +VANC1PLA9 IV; +ZINC220T GT
[2019-03-07 19:00] VITALS: BP 147/65
--- NOTE | 2019-03-07 19:15 | NUR ---
ENROLLMENT SERVICES VICE PRESIDENT NOTES BEDSIDE REPORT GIVEN TO NOC. ORDERS AND TRANSFER RECENTLY PLACED FOR PATIENT TO BE ON HOSPICE. PER AUTO ADJUDICATION SPECIALIST AWAITING FOR FAMILY TO BE AT BEDSIDE WHEN PATIENT DISCONNECTED FROM VENT. ALL ORDERS ENDORSED TO NOC
--- NOTE | 2019-03-07 19:16 | NUR ---
VETERINARY POULTRY INSPECTOR NOTE PATIENT REPORT GIVEN BEDSIDE. PATIENT OBTUNDED, NON VERBAL, DOES NOT OPEN EYES. PATIENT APPEARS TO BE COMFORTABLE. PATIENT CURRENTLY ON VENT. PER FAMILY WISHES PATIENT IS TO REMAIN ON VENT UNTIL FAMILY ARRIVES TO TAKE THE PATIENT OFF. RT NOTIFIED TO COORDINATE TIME AND PLAN. PATIENT PICC LINE PATENT AND INTACT NO S/S OF INFECTION AND INFILTRATION. PATIENT KAPOOR DRAINING TO GRAVITY URINE DARK YELLOW. RN WILL CONTINUE TO MONITOR. SAFETY AND COMFORT MEASURES IN PLACE.
[2019-03-07 20:00] VITALS: BP 140/60
[2019-03-07] MEDS ORDERED: LORAZEPAM INJ 2 MG/ML VIAL IV PRN (20:30)
[2019-03-07] MEDS ORDERED: MORPHINE SULFATE INJ 2 MG/ML DISP.SYRIN IVP PRN (20:30)
[2019-03-07] MEDS ORDERED: LORAZEPAM INJ 2 MG/ML VIAL IVP PRN (20:30)
[2019-03-07] MEDS: MORPHINE SULFATE INJ 2 MG/ML DISP.SYRIN IVP PRN ×4 (20:45→23:50)
--- NOTE | 2019-03-07 20:45 | NUR ---
INSTRUMENTAL MUSICIAN NOTE MORPHINE PUSHED AT 2044 RT CALLED AND NOTIFIED FOR DECANNULATION OF VENT. FAMILY PRESENT AND AT BEDSIDE.
--- NOTE | 2019-03-07 21:05 | NUR ---
MULTICRAFT OPERATOR NOTE PER MD ORDER AT 2105 20 MIN AFTER INITIAL MORPHINE ADMINISTRATION, RT TURNED OFF VENT AND PLACED ON SUPPLEMENTAL OXYGEN. COMFORT MEASURES IN PLACE. FAMILY AT BEDSIDE.
--- NOTE | 2019-03-07 21:12 | NUR ---
PER MDS ORDERS, PT WAS TAKEN OFF VENTILATOR SUPPORT AT 2105 AND PLACED ON SUPPLEMENTAL O2.
--- NOTE | 2019-03-07 21:21 | NUR ---
CLOTH DOFFER NOTE FAMILY AT BEDSIDE PATIENT COMFORTABLE. NO S/S OF DISTRESS/ INCREASED WOB/SOB// OR RESTLESSNESS. ORAL CARE GIVE, MOUTH SUCTIONED, PINK TINGED SUPTUM NOTED.
--- NOTE | 2019-03-07 21:46 | NUR ---
RETAIL EQUIPMENT ASSOCIATE NOTE FAMILY STILL PRESENT AT BEDSIDE, PATIENT SHOWS S/S OF INCREASED WOB AND GASPING, 1 MG OR MORPHINE PUSHED FOR PATIENTS COMFORT. RN WILL CONTINUE TO MONITOR.
--- NOTE | 2019-03-07 22:09 | NUR ---
FOREST RANGER NOTE FAMILY PROVIDED SUPPORT. FAMILY EXPRESSES NO NEEDS AT THIS TIME. PATIENT REMAINS COMFORTABLE. SPOKE TO HOSPICE AGENCY, AGENCY NOTIFIED RN KASSIDYUARY IS SUYAPA STOLL PER FAMILY REQUEST.
--- NOTE | 2019-03-07 22:49 | NUR ---
PUBLICITY DIRECTOR PATIENT GIVEN MORPHINE 1MG Q 1 HOUR, TO RELEIVE PT SOB. RN WILL CONTINUE TO MONITOR AND GIVE NEEDED FOR COMFORT AND SOB PER MD ORDER.
[2019-03-08] MEDS: MORPHINE SULFATE INJ 2 MG/ML DISP.SYRIN IVP PRN ×3 (00:47→07:49)
--- NOTE | 2019-03-08 02:32 | NUR ---
ELECTRONIC REPAIR TROUBLESHOOTER NOTE PATIENT COMFORTABLE AT THIS TIME. PATIENT GIVEN ORAL CARE.
--- NOTE | 2019-03-08 05:56 | NUR ---
UNIT SUPERVISOR NOTE PATIENT COMFORTABLE AT THIS TIME, PATIENT TURNED FOR COMFORT. ORAL CARE GIVEN. NO S/S OF DISCOMFORT AT THIS TIME.
--- NOTE | 2019-03-08 06:23 | NUR ---
TELECOMMUNICATIONS PROFESSIONAL NOTE PATIENT HAD BOWEL MOVEMENT, PATIENT CLEANED, LINENS CHANGED, PATIENT STILL REMAINS COMFORTABLE. WILL ENDORSE POC TO AM FOR KAT. PATIENT TURNED Q 2 HOURS ANND ORAL CARE GIVEN 2 Q HOURS ORDERED. ALL CARE RENDERED AND GIVEN ORDERED.
--- NOTE | 2019-03-08 07:19 | NUR ---
INITIAL PATIENT COMFORTABLE. NO S/S OF DISTRESS/ INCREASED WOB/SOB// OR RESTLESSNESS. ORAL CARE GIVE, MOUTH SUCTIONED, PINK TINGED SUPTUM NOTED.
[2019-03-08 08:00] VITALS: BP 63/27
--- NOTE | 2019-03-08 08:32 | NUR ---
CALLED NAVEED ANG AT NOTIFING HER THAT FAMILY IS TRENDING POORLY HR 40 AGONAL RESPIRATIONS . HOB ELEVATED ON O2 BY DILIP BALDERAS.
--- NOTE | 2019-03-08 09:02 | NUR ---
[id number] PT HAS NO HEART RATE OR RESPIRATIONS SECOND NURSE DANNI CONFIRMED. CALLED NAVEED PUTNAM AND TOLD ME TO CALL JOSE CARLOS VENEGAS AT CALLED [facility]
--- NOTE | 2019-03-08 09:29 | NUR ---
CALLED [facility] SPEAKING WITH HYDE BODY WILL NOT BE A CANDIDATE AND CAN BE RELEASED CALLED THEO AT
== END 2019-03-08 08:47 | disposition expired | DRG 189 ==
LOC: HOSPICE1 18:47
PROVIDERS: ADMIT Internal Medicine; ATTEND Internal Medicine
DX: J96.10 Chronic respiratory failure, unspecified whether with hypoxia or hypercapnia (principal); R53.2 Functional quadriplegia; J18.9 Pneumonia, unspecified organism; B37.49 Other urogenital candidiasis; E46 Unspecified protein-calorie malnutrition; E87.1 Hypo-osmolality and hyponatremia; K72.90 Hepatic failure, unspecified without coma; K76.0 Fatty (change of) liver, not elsewhere classified; R60.1 Generalized edema; D69.6 Thrombocytopenia, unspecified; D64.9 Anemia, unspecified; J44.9 Chronic obstructive pulmonary disease, unspecified; I95.9 Hypotension, unspecified; E11.9 Type 2 diabetes mellitus without complications; I71.6 Thoracoabdominal aortic aneurysm, without rupture; Z93.0 Tracheostomy status; Z93.1 Gastrostomy status; L89.90 Pressure ulcer of unspecified site, unspecified stage; H40.9 Unspecified glaucoma; Z86.73 Personal history of transient ischemic attack (TIA), and cerebral infarction without residual deficits; Z87.898 Personal history of other specified conditions
CPT/HCPCS: G0378; J2270